=== PATIENT | male | born 1960 | race Caucasian/White ===

== ENCOUNTER 2017-11-05 14:25 | Emergency (ER) | payer MEDICAID ==
--- NOTE | 2017-11-05 16:49 | ED Physician Documentation ---
PD HPI MALE - Stated complaint Stated Complaint: MALE - Chief complaint Chief Complaint: UTI - History obtained from History obtained from: Patient - History of Present Illness Timing - onset: How many weeks ago (1) Timing - duration: Weeks (1) Timing - details: Gradual onset, Still present (had onset of swelling left inguinal area that has increased and swelling to left scrotum as well. No nuasea nor vomiting.) Associated symptoms: Scrotal swelling. No: Dysuria, Urinary frequency, Discharge, Abdominal pain, Back pain PD HPI MALE CONTRIB FACTORS: Sexually active. No: Exposed to STD Similar symptoms before: Has not had sx before (had hernia right sie repaired but that was just lump in groin, not scrotum.) Review of Systems Constitutional: denies: Fever GI: denies: Abdominal Pain, Nausea, Vomiting, Diarrhea : denies: Dysuria, Frequency, Hematuria, Discharge Skin: denies: Rash PD PAST MEDICAL HISTORY - Past Medical History Cardiovascular: Hypertension, High cholesterol Respiratory: None Endocrine/Autoimmune: None GI: Colon polyps, Other : Benign prostate hypertrophy, Retention, Kidney stones HEENT: None Psych: Depression Musculoskeletal: Osteoarthritis Derm: None - Past Surgical History Past Surgical History: Yes General: Colonoscopy Ortho: Rotator cuff repair, Carpal Tunnel surgery HEENT: Tonsil/Adenoidectomy - Present Medications Home Medications: Ambulatory Orders Medication Instructions Recorded Confirmed HYDROcod/ACETAM 5/325 [[place] 5/325] 1 tab PO Q6H PRN #20 tablet 11/05/17 Naproxen [Naprosyn] 500 mg PO BID PRN #20 tablet 11/05/17 - Allergies Allergies/Adverse Reactions: Allergies Allergy/AdvReac Type Severity Reaction Status Date / Time FREEDOM Inhibitors Allergy Edema Verified 11/05/17 14:35 - Social History Does the pt smoke?: Yes Does the pt drink ETOH?: No - Immunizations Immunizations are current?: Yes PD ED PE NORMAL - Vitals Vital signs reviewed: Yes - General General: Alert and oriented X 3, Well developed/nourished - Abdomen Abdomen: Normal bowel sounds, Soft, Non tender, Non distended, No organomegaly - Male Male : Other (left inguinal area with tender mass but soft. Left scrotum with swelling and tenderness with mass feeling continguous with the inguinal site. Consider hernia. Will get U/S to evluate testicle flow. ) - Back Back: No CVA TTP - Derm Derm: Normal color, Warm and dry, No rash Results - Vitals Vitals: Oxygen O2 Source Room air - Labs Labs: Laboratory Tests 11/05/17 16:50 Urine Color YELLOW Urine Clarity CLEAR Urine pH 7.5 Ur Specific [place] 1.020 Urine Protein 30 H Urine Glucose (UA) NEGATIVE Urine Ketones NEGATIVE Urine Occult Blood TRACE-INTA Urine Nitrite NEGATIVE Urine Bilirubin NEGATIVE Urine Urobilinogen 0.2 (NORMAL) Ur Leukocyte Esterase NEGATIVE Urine RBC 6-10 H Urine WBC 0-3 Ur Squamous Epith Cells NONE SEEN Urine Bacteria None Seen Ur Microscopic Review INDICATED Urine Culture Comments NOT INDICATED PD MEDICAL DECISION MAKING - ED course Complexity details: reviewed results (U/S showing normal testicle. There is large hernia in inguinal area to scrotum with some pressure gainst testicle. Normal blood flow. ), considered differential, d/w patient Departure - Departure Disposition: Home, Self Care Clinical Impression: Swelling of inguinal region, Scrotal hernia Condition: Stable Record reviewed to determine appropriate education?: Yes Instructions: ED Hernia Inguinal Follow-Up: PANDA MARSH MD [Provider Admit Priv/Credential] - Prescriptions: HYDROcod/ACETAM 5/325 [[place] 5/325] 1 tab PO Q6H PRN #20 tablet PRN Reason: Pain Naproxen [Naprosyn] 500 mg PO BID PRN #20 tablet PRN Reason: Pain Comments: Some ice or cold packs to the groin area may help with some of the pain and swelling. Contact Dr. Marsh's office (or any other surgeons available at the surgical center), call Wednesday for an appointment. Naproxen or ibuprofen 2- 3 times a day for pain. Add hydrocodone if needed. Drink lots of fluids. Follow-up for surgical consultation for presumed repair of the hernia. Discharge Date/Time: 11/05/17 20:17
[2017-11-05 17:01] LABS: BILIRUBIN,URINE NEGATIVE (NEGATIVE); GLUCOSE, URINE (UA) NEGATIVE (NEGATIVE); KETONES,URINE (UA) NEGATIVE (NEGATIVE); LEUKOCYTE ESTERASE, URINE NEGATIVE (NEGATIVE); NITRITE,URINE NEGATIVE (NEGATIVE); OCCULT BLOOD,URINE TRACE-INTA (NEGATIVE); PH,URINE 7.5 PH (5.0-7.5); PROTEIN,URINE 30 mg/dL (NEGATIVE); UROBILINOGEN,URINE 0.2 (NORMAL) E.U./dL (NORMAL)
[2017-11-05 17:02] LABS: CLARITY,URINE CLEAR (CLEAR)
[2017-11-05] MEDS ORDERED: IBUPROFEN 600 MG TABLET PO STA (17:09)
[2017-11-05] MEDS ORDERED: HYDROcod/ACETAM 5/325 MG TABLET PO STA (17:09)
[2017-11-05 17:16] LABS: BACTERIA,URINE None Seen /HPF (None Seen); SQUAMOUS EPITHELIAL CELL,UR NONE SEEN (<= Few)
[2017-11-05 18:30] VITALS: BP 142/104
--- NOTE | 2017-11-05 20:04 | Ultrasound Report ---
EXAM: SCROTAL ULTRASOUND EXAM DATE: 11/05/2017 07:49 PM. CLINICAL HISTORY: Left scrotal/inguinal pain and swelling for 1-2 wk. COMPARISON: 08/20/2016. TECHNIQUE: Real-time scanning was performed with static images obtained. Both color-flow and Doppler spectral analysis were utilized. FINDINGS: Right: Testis: 3.0 x 2.9 x 2.1 cm. Normal size and echotexture. No mass, calcification, or abnormal blood fl ow. Epididymis: 0.8 x 0.8 x 1.2 cm. Normal size and echotexture. No mass or abnormal blood flow. Hydrocele: Small to moderate hydrocele. Varicocele: Small varicocele measuring 3.1 mm. Left: Testis: 3.5 x 1.9 x 2.5 cm. Normal size and echotexture. No mass, calcification, or abnormal blood fl ow. Epididymis: 0.9 x 1.0 x 1.0 cm. Normal size and echotexture. No mass or abnormal blood flow. Hydrocele: Small hydrocele. Varicocele: None. Other: Solid heterogeneous tissue along the lateral surface of the testicle measuring 2.5 x 2.4 x 3.4 cm, impressing upon the testicle and deforming it a little, contiguous with tissue extending down th rough the inguinal canal, apparently representing hernia; no peristalsis. IMPRESSION: 1. Left inguinal hernia with tissue pressing upon the left testicle. Not bowel. 2. Small to moderate hydroceles, small right varicocele, as previously noted. [facility] Referring Provider Line: [phone] SITE ID: [id number]
== END 2017-11-05 20:17 | disposition home or self-care (01) ==
LOC: ED 14:25
DX: K40.90 Unilateral inguinal hernia, without obstruction or gangrene, not specified as recurrent (principal); N43.3 Hydrocele, unspecified; I86.1 Scrotal varices; I10 Essential (primary) hypertension; E78.00 Pure hypercholesterolemia, unspecified; N40.0 Benign prostatic hyperplasia without lower urinary tract symptoms; Z86.010 Personal history of colon polyps; Z87.442 Personal history of urinary calculi; M19.90 Unspecified osteoarthritis, unspecified site; F17.200 Nicotine dependence, unspecified, uncomplicated
CPT/HCPCS: 76870; 81001; 93975; 99283; A9270; 81003; 87086

== ENCOUNTER 2017-12-08 07:54 | Outpatient (CLI) | payer MEDICAID ==
[2017-12-08 13:08] LABS: BASOPHILS # (AUTO) 0.1 10^3/uL (0.0-0.1); BASOPHILS % (AUTO) 1.4 %; EOSINOPHILS % (AUTO) 0.8 %; HGB - HEMOGLOBIN 15.3 g/dL (14.0-18.0); LYMPHOCYTES # (AUTO) 1.2 10^3/uL (1.5-3.5); LYMPHOCYTES % (AUTO) 20.2 %; MEAN CORPUSCULAR HEMOGLOBIN 28.9 pg (27.0-31.0); MEAN CORPUSCULAR HGB CONC 34.5 g/dL (32.0-36.0); MEAN CORPUSCULAR VOLUME 83.6 fL (80.0-94.0); MEAN PLATELET VOLUME 7.9 fL (7.4-11.4); MONOCYTES # (AUTO) 0.8 10^3/uL (0.0-1.0); MONOCYTES % (AUTO) 13.4 %; NEUTROPHILS # (AUTO) 3.7 10^3/uL (1.5-6.6); NEUTROPHILS % (AUTO) 64.2 %; PLT - PLATELET COUNT 239 10^3/uL (130-450); RED BLOOD COUNT 5.31 10^6/uL (4.70-6.10); RED CELL DISTRIBUTION WIDTH 14.1 % (12.0-15.0); WHITE BLOOD COUNT 5.8 x10^3/uL (4.8-10.8)
[2017-12-08 13:23] LABS: ALBUMIN 3.7 g/dL (3.2-5.5); ALKALINE PHOSPHATASE 73 IU/L (42-121); ALT ALANINE AMINOTRANSFERASE 21 IU/L (10-60); AST ASPARTATE AMINOTRANSFERASE 25 IU/L (10-42); BILIRUBIN,TOTAL 0.5 mg/dL (0.2-1.0); BUN - BLOOD UREA NITROGEN 16 mg/dL (6-20); CALCIUM 8.6 mg/dL (8.5-10.3); CARBON DIOXIDE - CO2 26 mmol/L (21-32); CHLORIDE 98 mmol/L (101-111); CHOL/HDL RATIO 8.4 (<5.0); CHOLESTEROL 337 mg/dL; GFR - MDRD 77 (>89); GLUCOSE 115 mg/dL (70-100); HDL CHOLESTEROL 40 mg/dL; LDL CHOLESTEROL,CALCULATED 279 mg/dL; SODIUM 132 mmol/L (135-145); TOTAL PROTEIN 7.3 g/dL (6.7-8.2); VLDL CHOLESTEROL 18 mg/dL
== END 2017-12-08 07:55 | disposition home or self-care (01) ==
LOC: LAB.N 07:54
PROVIDERS: ATTEND Family Medicine
DX: I10 Essential (primary) hypertension (principal); F17.210 Nicotine dependence, cigarettes, uncomplicated
CPT/HCPCS: 36415; 80050; 80061; 83721

== ENCOUNTER 2017-12-13 06:17 | Day surgery (SDC) | payer MEDICAID ==
[2017-12-13] MEDS ORDERED: ceFAZolin 2 GM/50 ML 2 GM/50 ML BAG IV ONE (06:35)
[2017-12-13] MEDS ORDERED: LACTATED RINGERS 1,000 ML IV ONE ×5 (07:00→13:00)
[2017-12-13] MEDS ORDERED: GLYCOPYRROLATE 1 MG/5 ML VIAL IVP ONE (09:01)
[2017-12-13] MEDS ORDERED: ONDANSETRON 4 MG/2 ML VIAL IVP ONE (09:01)
[2017-12-13] MEDS ORDERED: LIDOCAINE-MPF 2% 5 ML VIAL IM ONE (09:01)
[2017-12-13] MEDS ORDERED: PROPOFOL 200 MG/20 ML VIAL IVP ONE (09:01)
[2017-12-13] MEDS ORDERED: KETOROLAC 30 MG/ML VIAL IVP ONE (09:01)
[2017-12-13] MEDS ORDERED: ROCURONIUM 50 MG/5 ML VIAL IVP ONE (09:01)
[2017-12-13] MEDS ORDERED: fentaNYL 100 MCG/2 ML VIAL IVP ONE (09:01)
[2017-12-13] MEDS ORDERED: ePHEDrine 50 MG/ML AMP IVP ONE (09:01)
[2017-12-13] MEDS ORDERED: ACETAMINOPHEN 1,000 MG/100 ML 100 ML IV ONE (09:01)
[2017-12-13] MEDS ORDERED: BUPIVACAINE 0.5% PF 30 ML VIAL INFIL ONE (09:46)
--- NOTE | 2017-12-13 10:11 | POST OP PROGRESS NOTE ---
Subjective - Other Other Information/Narrative: SURGEON: Dr. Marsh. PREOPERATIVE DIAGNOSIS: Left inguinal hernia. POSTOPERATIVE DIAGNOSIS: Left inguinal hernia. INDICATIONS FOR PROCEDURE: This is a 57-year-old gentleman with a painful left inguinal hernia, who presents for elective repair. He underwent a laparoscopic right inguinal hernia repair last year. FINDINGS: After obtaining informed consent from the patient, he was brought into the operating room and positioned on the operating table in the supine position, taking note of pressure points. He was intubated by Anesthesia. Perioperative antibiotics were administered. SCD boots were applied. A chua was inserted. He was prepped and draped in the usual sterile fashion. A timeout was taken according to protocol. An infraumbilical 1 cm incision was created and deepened down to the anterior rectus sheath. This was exposed using blunt dissection. The anterior sheath was then opened with a 15 blade and extended with Metzenbaums, exposing the underlying rectus muscle. The rectus muscle was swept laterally with the retractor and the surgeon's finger inserted into the retrorectus space to perform blunt dissection. The dissecting balloon was then inserted and inflated under direct visualization. The balloon was then removed and was exchanged for the operative balloon. Two 5 mm ports were placed in the infraumbilical midline. The patient was positioned in Trendelenburg with the left side elevated. The fatty tissue overlying the pubic bone was dissected to expose the pubic bone. There was some scaring in this area from his previous laparoscopic inguina hernia require careful dissection. I then turned my attention to the patient's left abdominal wall and pushed the peritoneum down, exposing the left lateral abdominal musculature. I worked my way medially towards the cord structures continuing to push the peritoneum down. Again some scar tissue was present and locating the hernia sac was somewhat difficult. Additionally he had a lipoma of his cord which required reduction. His cord structures were noted to be thickened likely from his hydrocele. A small hernia sac, which was partially reduced, was noted in the indirect space. It was noted to be quite stuck to the cord structures and required careful dissection to fully reduce the hernia sac. I was able to do this fully. The cord structures were skeletonized and the hernia completely dissected off of the cord structures. The epigastric vessels were visualized and protected. The direct space was then visualized and there was some fat within the space, but no hernia was noted. There was some bleeding from the fatty cord structures during the dissection and a small gauze was inserted into the space to facilitate visualization. The bleeding was controlled with electrocautery. The gauze was then removed. A large Bard regular weight mesh was selected for the patient's left groin. This was inserted through the umbilical port and positioned appropriately. The medial aspect of the mesh was noted to be slightly crossing the midline and the mesh was seated against the abdominal wall as to cover the indirect, direct and femoral spaces. It was tacked with a tack placed in the midline above the pubic symphasis and on the lateral abdominal wall using the surgeon's hand for counter pressure ensuring it was placed above the nerve structures. The cavity was then inspected to ensure hemostasis had been achieved and it had. The mesh was then held into place as the retrorectal air was allowed to desufflate. The umbilical fascial incision was then closed with a running 0 Vicryl suture. 30 mL of local anesthetic was infiltrated. The skin incisions were closed with 4-0 Monocryl. Dermabond was then applied. The patient was subsequently extubated and taken to the recovery room in stable condition. ESTIMATED BLOOD LOSS: 15 mL COMPLICATIONS: None.
[2017-12-13] MEDS ORDERED: oxyCOD/ACETAMIN 5 MG/325 MG TABLET PO ONE (11:48)
[2017-12-13 13:45] VITALS: BP 146/85
== END 2017-12-13 06:18 | disposition home or self-care (01) ==
LOC: SDS 06:17
PROVIDERS: ATTEND Surgery
PROC: 0YU64JZ Supplement Left Inguinal Region with Synthetic Substitute, Percutaneous Endoscopic Approach (ICD-10-PCS; principal; 2017-12-13 07:30)
DX: K40.90 Unilateral inguinal hernia, without obstruction or gangrene, not specified as recurrent (principal); D17.6 Benign lipomatous neoplasm of spermatic cord; F17.210 Nicotine dependence, cigarettes, uncomplicated; I10 Essential (primary) hypertension
CPT/HCPCS: 49650; A9270; C1781; J0131; J0690; J7120

== ENCOUNTER 2018-01-25 07:37 | Outpatient (CLI) | payer MEDICAID ==
[2018-01-25] MEDS ORDERED: IOPAMIDOL-300 100 ML VIAL ONE (07:49)
[2018-01-25] MEDS ORDERED: IOPAMIDOL-300 50 ML VIAL ONE (07:49)
[2018-01-25] MEDS ORDERED: IOPAMIDOL-300 50 ML VIAL PO ONE (08:54)
[2018-01-25] MEDS ORDERED: IOPAMIDOL-300 100 ML VIAL IVP ONE (08:54)
--- NOTE | 2018-01-25 13:11 | CT Report ---
CT PELVIS WITH CONTRAST: 01/25/2018 CLINICAL INDICATION: Left-sided swelling following left inguinal herniorrhaphy. TECHNIQUE: Axial CT images of the pelvis were obtained with 100 mL Isovue 300 intravenously as well as oral contrast. COMPARISON: No previous CT is available for comparison. FINDINGS: The visualized kidneys demonstrate cortical cysts. Atherosclerotic disease is present. Sigmoid diverticulosis is seen, without CT evidence of diverticulitis. Postoperative changes are seen in the left groin. There is fat adjacent to the left spermatic vessels, compatible with lipomatous hypertrophy of the inguinal canal, without evidence of a recurrent left inguinal hernia. No adenopathy is seen. Osseous structures demonstrate degenerative changes. IMPRESSION: NO EVIDENCE OF RECURRENT HERNIA OR ABNORMAL FLUID COLLECTION. CT DOSE REDUCTION STATEMENT In accordance with CT protocol optimization, one or more of the following dose reduction techniques were utilized for this exam: automated exposure control, adjustment of mA and/or KV based on patient size, or use of iterative reconstructive technique. TD: 01/25/2018 13:10
== END 2018-01-25 07:38 | disposition home or self-care (01) ==
LOC: DI 07:37
PROVIDERS: ATTEND Surgery
DX: R10.32 Left lower quadrant pain (principal)
CPT/HCPCS: 72193; Q9967

== ENCOUNTER 2018-01-25 08:00 | Outpatient (CLI) | payer MEDICAID ==
[~2018-01-25 08:00] MED LIST: IOPAMIDOL-300 100 ML VIAL ONE
[2018-01-25 08:10] LABS: CREATININE 0.7 mg/dL (0.6-1.2)
[2018-01-25] MEDS ORDERED: IOPAMIDOL-300 100 ML VIAL IVP ONE (08:45)
[2018-02-08] MEDS ORDERED: IOPAMIDOL-300 100 ML VIAL IVP ONE (09:45)
== END 2018-01-25 23:59 | disposition home or self-care (01) ==
LOC: LAB 08:00
PROVIDERS: ATTEND Surgery
DX: R10.32 Left lower quadrant pain (principal)
CPT/HCPCS: 36415; 82565

== ENCOUNTER 2018-02-08 13:32 | Emergency (ER) | payer MEDICAID ==
[2018-02-08 13:39] VITALS: BP 184/146
--- NOTE | 2018-02-08 14:15 | ED Physician Documentation ---
PD HPI MALE - Stated complaint Stated Complaint: MALE - Chief complaint Chief Complaint: General - History obtained from History obtained from: Patient - History of Present Illness Timing - onset: How many weeks ago (he has had swelling and tenderness left inguinala stacey) Timing - duration: Weeks Timing - details: Gradual onset, Still present (increased size and pain of the inguinal mass the past week even more than had been.) Associated symptoms: No: Dysuria, Urinary frequency, Testiclar pain (but is hurting in left inguinal area, increasingly so the past few weeks after hernia repair surgery.) Recently seen: Clinic (seen in office couple weeks ago and had CT pelvis done showing fatty hypertrophy around spermatic cord left side. No hernia, no abscess , no fluid collection.) Review of Systems Constitutional: denies: Fever, Chills GI: denies: Vomiting, Diarrhea : reports: Other (left inguinal area pain and swelling). denies: Dysuria, Frequency, Hematuria Skin: denies: Rash, Lesions PD PAST MEDICAL HISTORY - Past Medical History Cardiovascular: Hypertension, High cholesterol Respiratory: None Endocrine/Autoimmune: None GI: Colon polyps, Other : Benign prostate hypertrophy, Retention, Kidney stones HEENT: None Psych: Depression Musculoskeletal: Osteoarthritis Derm: None - Past Surgical History Past Surgical History: Yes General: Colonoscopy Ortho: Rotator cuff repair, Carpal Tunnel surgery HEENT: Tonsil/Adenoidectomy - Present Medications Home Medications: Ambulatory Orders Medication Instructions Recorded Confirmed Naproxen [Naprosyn] 500 mg PO BID #20 tablet 02/08/18 Oxycodone HCl/Acetaminophen 1 each PO Q6H PRN #20 tablet 02/08/18 [Percocet 5-325 mg Tablet] - Allergies Allergies/Adverse Reactions: Allergies Allergy/AdvReac Type Severity Reaction Status Date / Time FREEDOM Inhibitors Allergy Edema Verified 12/09/17 15:39 - Social History Does the pt smoke?: Yes Smoking Status: Current every day smoker Does the pt drink ETOH?: No Does the pt have substance abuse?: No - Immunizations Immunizations are current?: Yes - POLST Patient has POLST: No PD ED PE NORMAL - Vitals Vital signs reviewed: Yes - General General: Alert and oriented X 3, Well developed/nourished, Other (appears in pain due to inguinal swelling. ) - Neck Neck: Supple, no meningeal sign, No adenopathy - Cardiac Cardiac: RRR, No murmur - Respiratory Respiratory: Clear bilaterally - Abdomen Abdomen: Normal bowel sounds, Soft, Non tender, Non distended, No organomegaly - Male Male : Other (left inguinal and upper scrotal area with demarcated swelling and tenderness in tubular shape. No redness nor rash. Below that testicle does seem to feel normal, but harder to assess. ) Results - Vitals Vitals: Vital Signs - 24 hr 02/08/18 13:35 Temperature 36.4 C L Heart Rate 87 Respiratory 20 Rate Blood Pressure 184/146 H O2 Saturation 100 Oxygen O2 Source Room air - Rads (name of study) scrotal U/S Radiology: Prelim report reviewed (no fluid collection at area of swelling, appears tissue density. Small hydrocele lower noted. Testicles are normal. ) PD MEDICAL DECISION MAKING - ED course Complexity details: considered differential (recent CT scan showing fatty hypertrophy around spermatic cord. U/S today showed similar density of tissue. No fluid collection. Testicle normal. ), d/w patient, d/w principal consultant (Dr. Candelaria , [facility], to treat with NSAIDs and time. Usually not able to do surgical treatment. Can refer for office appt. ) Departure - Departure Disposition: 01 Home, Self Care Clinical Impression: Swelling of inguinal region Condition: Stable Record reviewed to determine appropriate education?: Yes Follow-Up: Marilin Candelaria MD [Physician No Access] - Prescriptions: Naproxen [Naprosyn] 500 mg PO BID #20 tablet Oxycodone HCl/Acetaminophen [Percocet 5-325 mg Tablet] 1 each PO Q6H PRN #20 tablet PRN Reason: Pain Comments: The area of swelling and lump appears to be some inflammation and overgrowth of fatty tissue around the spermatic cord. I talked with the urologist in [place] who said to try anti-inflammatories and use pain medicine as needed. He can follow-up with them also call tomorrow for an appointment with the urology office. Use naproxen twice daily for 7-10 days. Add Percocet if needed for pain. It does not appear to be infectious so antibiotics are not going to be helpful. Follow-up with your primary care and also urology. Discharge Date/Time: 02/08/18 18:35
[2018-02-08] MEDS ORDERED: KETOROLAC 60 MG/2 ML VIAL IVP STA (14:29)
[2018-02-08] MEDS ORDERED: HYDROmorphone 1 MG/ML CARPUJECT IVP STA (14:29)
--- NOTE | 2018-02-08 17:58 | Ultrasound Report ---
SCROTAL ULTRASOUND: 02/08/2018 HISTORY: Status post inguinal hernia repair, now with severe left groin pain. COMPARISON: Testicular ultrasound 05/26/2016, 08/20/2016 and 11/05/[address] 01/25/18 TECHNIQUE: Real-time scanning by the refining engineer with me present and saved static images reviewed. FINDINGS Right hemiscrotum: Testicle 3.5 x 2.3 x 2.9 cm. Normal echotexture and blood flow. Small hydrocele. Small varicocele. Epididymis 1.4 x 1.5 x 2.3 cm with a heterogenous appearance. No significant increased vascularity. Left hemiscrotum: Testicle 3.3 x 2.6 x 2.6 cm. Normal echotexture and blood flow. Small left hydrocele. Unremarkable appearing left epididymis. Lateral to the left testicle, there is a heterogeneous area with increased vascularity contiguous with the spermatic cord , considerer fat/lipoma, vasitis or funiculitis. There is diffuse scrotal thickening consistent with inflammation. No hernia is seen. IMPRESSION 1. NORMAL TESTICLES BILATERALLY. SMALL BILATERAL HYDROCELES. RIGHT VARICOCELE. 2. SLIGHT ASYMMETRIC INCREASED SOFT TISSUE LATERAL TO THE LEFT TESTICLE CONTINGUOUS WITH THE SPERMATIC CORD. CONSIDER FAT/LIPOMA, VASITIS, FUNICULITIS. 3. DIFFUSE SCROTAL SKIN THICKENING CONSISTENT WITH INFLAMMATION. 4. NO EVIDENCE OF RECURRENT INGUINAL HERNIA. TD: 02/08/2018 17:58 MTDD
== END 2018-02-08 18:35 | disposition home or self-care (01) ==
LOC: ED 13:32
DX: R19.09 Other intra-abdominal and pelvic swelling, mass and lump (principal); N43.3 Hydrocele, unspecified; I86.1 Scrotal varices; I10 Essential (primary) hypertension; E78.00 Pure hypercholesterolemia, unspecified; F17.200 Nicotine dependence, unspecified, uncomplicated; Z98.890 Other specified postprocedural states
CPT/HCPCS: 76870; 93975; 96374; 96375; 99283; 99284; J1170; 87491; 87591

== ENCOUNTER 2019-02-01 08:43 | Outpatient (CLI) | payer OTHER ==
[2019-02-01 09:04] LABS: BASOPHILS % (AUTO) 0.6 %; EOSINOPHILS # (AUTO) 0.2 10^3/uL (0.0-0.7); EOSINOPHILS % (AUTO) 2.8 %; HGB - HEMOGLOBIN 16.1 g/dL (14.0-18.0); LYMPHOCYTES # (AUTO) 1.6 10^3/uL (1.5-3.5); LYMPHOCYTES % (AUTO) 20.3 %; MEAN CORPUSCULAR HEMOGLOBIN 28.3 pg (27.0-31.0); MEAN CORPUSCULAR HGB CONC 32.9 g/dL (32.0-36.0); MEAN CORPUSCULAR VOLUME 86.1 fL (80.0-94.0); MEAN PLATELET VOLUME 7.3 fL (7.4-11.4); MONOCYTES # (AUTO) 0.6 10^3/uL (0.0-1.0); MONOCYTES % (AUTO) 7.8 %; NEUTROPHILS # (AUTO) 5.4 10^3/uL (1.5-6.6); NEUTROPHILS % (AUTO) 68.5 %; PLT - PLATELET COUNT 329 10^3/uL (130-450); RED CELL DISTRIBUTION WIDTH 14.7 % (12.0-15.0); WHITE BLOOD COUNT 7.9 x10^3/uL (4.8-10.8)
[2019-02-01 09:09] LABS: CLARITY,URINE CLEAR (CLEAR)
[2019-02-01 09:09] LABS: ALBUMIN 3.4 g/dL (3.2-5.5); ALBUMIN/GLOBULIN RATIO 0.9 (1.0-2.2); BILIRUBIN,TOTAL 1.1 mg/dL (0.2-1.0); CALCIUM 8.8 mg/dL (8.5-10.3); TOTAL PROTEIN 7.1 g/dL (6.7-8.2)
[2019-02-01 09:11] LABS: BILIRUBIN,URINE NEGATIVE (NEGATIVE); GLUCOSE, URINE (UA) NEGATIVE (NEGATIVE); KETONES,URINE (UA) NEGATIVE (NEGATIVE); LEUKOCYTE ESTERASE, URINE NEGATIVE (NEGATIVE); NITRITE,URINE NEGATIVE (NEGATIVE); OCCULT BLOOD,URINE SMALL (NEGATIVE); PROTEIN,URINE NEGATIVE (NEGATIVE); UROBILINOGEN,URINE 0.2 (NORMAL) E.U./dL (NORMAL)
[2019-02-01 09:35] LABS: BACTERIA,URINE Rare /HPF (None Seen); RBC,URINE 0-5 /HPF (0-5); SQUAMOUS EPITHELIAL CELL,UR RARE Squamous (<= Few)
== END 2019-02-01 08:44 | disposition home or self-care (01) ==
LOC: RT 08:43
PROVIDERS: ATTEND Internal Medicine Gastroenterology
DX: Z86.010 Personal history of colon polyps (principal); I10 Essential (primary) hypertension; N40.1 Benign prostatic hyperplasia with lower urinary tract symptoms
CPT/HCPCS: 36415; 80053; 81001; 85025; 87086; 93005

== ENCOUNTER 2019-02-06 07:10 | Day surgery (SDC) | payer OTHER ==
[2019-02-06] MEDS ORDERED: BUPIVACAINE 0.5%-EPI 1:200000 PF 30 ML VIAL ONE (07:16)
[2019-02-06] MEDS ORDERED: LIDOCAINE 1% 50 ML MDV ONE (07:16)
[2019-02-06] MEDS ORDERED: ceFAZolin 1 GM VIAL ONE (07:16)
[2019-02-06] MEDS ORDERED: LACTATED RINGERS 1,000 ML IV ONE (07:27)
[2019-02-06] MEDS ORDERED: ceFAZolin 2 GM/50 ML 2 GM/50 ML BAG IV ONE (07:43)
[2019-02-06 07:45] VITALS: BP 164/108
--- NOTE | 2019-02-06 07:48 | ANESTHESIA ---
Pre-Anesthesia VS, & Labs - Diagnosis Left recurrent inguinal hernia - Procedure Left inguinal hernia repair Height 5 ft 10 in Body Mass Index 22.2 - NPO >8 hours - Lab Results Lab results reviewed: Yes Home Medications and Allergies Home Medications: Ambulatory Orders RX: Methocarbamol 500 mg PO Q6H PRN 02/03/19 RX: Metoprolol Tartrate 50 mg PO BID 02/03/19 Methocarbamol 500 mg PO Q6H PRN 02/03/19 Metoprolol Tartrate 50 mg PO BID 02/03/19 Allergies/Adverse Reactions: Allergies Allergy/AdvReac Type Severity Reaction Status Date / Time FREEDOM Inhibitors Allergy Edema Verified 12/09/17 15:39 Anes History & Medical History - Anesthetic History Anesthesia Complications: reports: No previous complications Family history of Anesthesia Complications: Denies Family history of Malignant Hyperthermia: Denies - Medical History Cardiovascular: reports: Hypertension, High cholesterol Pulmonary: reports: None, Other (Morning cough related to smoking) Gastrointestinal: reports: Colon polyps Urinary: reports: Benign prostate hypertrophy, Retention, Kidney stones Neuro: reports: None Musculoskeletal: reports: Osteoarthritis Endocrine/Autoimmune: reports: Other Blood Disorders: reports: None Skin: reports: None, Other (Right top of hand with injury from janee nail, will inform surgeon) Smoking Status: Current every day smoker Psychosocial: reports: No issues indicated - Surgical History General: Colonoscopy, Other Eyes Ears Nose Throat (EENT): Tonsil/Adenoidectomy Orthopedic: Rotator cuff repair, Carpal Tunnel surgery Exam General: Alert Dental: WNL Mouth Opening: Greater than 4 Fingerbreadths Neck Mobility: Reduced Mallampati classification: II Thyromental Distance: greater than 6 cm Respiratory: Lungs clear Cardiovascular: Regular rate Neurological: Normal speech Mental/Cognitive Status: Alert/Oriented X3 Cognitive Status: Within normal limits Plan Anesthesia Type: General Consent for Procedure(s) Verified and Reviewed: Yes Code Status: Attempt Resuscitation ASA classification: 2-Mild systemic disease Is this case an emergency?: No
[2019-02-06] MEDS ORDERED: TETANUS/DIPHTHERIA/PERTUSSIS 0.5 ML SYRINGE IM ONE (09:00)
== END 2019-02-06 07:11 | disposition home or self-care (01) ==
LOC: SDS 07:10
PROVIDERS: ATTEND Internal Medicine Gastroenterology
DX: K40.91 Unilateral inguinal hernia, without obstruction or gangrene, recurrent (principal); Z53.09 Procedure and treatment not carried out because of other contraindication; S61.411D Laceration without foreign body of right hand, subsequent encounter; W45.0XXD Nail entering through skin, subsequent encounter
CPT/HCPCS: 90715; J0690; J7120

== ENCOUNTER 2019-02-08 13:54 | Outpatient (CLI) | payer OTHER | END 2019-02-08 23:59 | disposition home or self-care (01) | LOC: LAB.R 13:54 | PROVIDERS: ATTEND Surgery | DX: L08.9 Local infection of the skin and subcutaneous tissue, unspecified (principal) | CPT/HCPCS: 87070; 87181; 87205 ==

== ENCOUNTER 2019-02-11 15:01 | Outpatient (CLI) | payer OTHER ==
--- NOTE | 2019-02-13 08:26 | Ultrasound Report ---
Reason: TESTICULAR PAIN,RIGHT Procedure Date: 02/11/2019 Accession Number: [id number] / [id number] Procedure: US - Testicle w/Doppler CPT Code: FULL RESULT: EXAM: SCROTAL ULTRASOUND EXAM DATE: 02/11/2019 04:29 PM. CLINICAL HISTORY: Right testicular pain. COMPARISON: TESTICLE W/DOPPLER 02/08/2018 3:22 PM. TECHNIQUE: Real-time scanning was performed with static images obtained. Color-flow images were utilized. FINDINGS: Right: Testis: 4.0 x 2.0 x 2.9 cm, volume 12.1 cc. Normal echotexture. No mass or calcification. No hyperemia. Epididymis: The epididymal head measures 1.4 x 1.4 cm and contains a 0.4 cm simple cyst. Normal echotexture. No hyperemia. Hydrocele: Small, anechoic. Varicocele: Yes. Left: Testis: 3.1 x 2.3 x 2.7 cm, volume 10.1 cc. Normal echotexture. No mass or calcification. No hyperemia. Epididymis: The epididymal head measures 1.2 x 0.9 cm and contains a simple cyst measuring 0.5 cm. Normal echotexture. No hyperemia. Hydrocele: Small, anechoic. Varicocele: None. Other: Redemonstration of known left inguinal hernia with hernia contents extending into the scrotal sac. IMPRESSION: 1. Redemonstration of known left inguinal hernia which extends into the scrotal sac. 2. Right varicocele, as before. 3. Subcentimeter simple bilateral epididymal head cysts. 4. Small simple bilateral hydroceles. [facility]
== END 2019-02-11 15:02 | disposition home or self-care (01) ==
LOC: DI 15:01
PROVIDERS: ATTEND Internal Medicine Gastroenterology
DX: K40.90 Unilateral inguinal hernia, without obstruction or gangrene, not specified as recurrent (principal); I86.1 Scrotal varices; N50.3 Cyst of epididymis; N43.3 Hydrocele, unspecified
CPT/HCPCS: 76870; 93975

== ENCOUNTER 2019-02-20 07:32 | Day surgery (SDC) | payer OTHER ==
[~2019-02-20 07:32] MED LIST changes: +BUPIVACAINE 0.5%-EPI 1:200000 PF 30 ML VIAL ONE; -IOPAMIDOL-300 100 ML VIAL ONE; +LIDOCAINE 1% 50 ML MDV ONE; +ceFAZolin 1 GM VIAL ONE; +ceFAZolin 2 GM/50 ML 2 GM/50 ML BAG IV ONE
--- NOTE | 2019-02-20 07:47 | ANESTHESIA ---
Pre-Anesthesia VS, & Labs - Diagnosis recurrent left inguinal hernia - Procedure open left inguinal hernia repair Vital Signs: Temp Pulse Resp BP Pulse Ox 36.4 C L 57 L 16 157/97 H 100 02/20/19 07:38 02/20/19 07:38 02/20/19 07:38 02/20/19 07:38 02/20/19 07:38 Height 5 ft 10 in Weight (kg) 72.4 kg Body Mass Index 22.2 - NPO >8 hours Home Medications and Allergies Methocarbamol 500 mg PO Q6H PRN 02/03/19 Metoprolol Tartrate 50 mg PO BID 02/03/19 Allergies/Adverse Reactions: Allergies Allergy/AdvReac Type Severity Reaction Status Date / Time FREEDOM Inhibitors Allergy Edema Verified 12/09/17 15:39 Anes History & Medical History - Anesthetic History Anesthesia Complications: reports: No previous complications Family history of Anesthesia Complications: Denies Family history of Malignant Hyperthermia: Denies - Medical History Cardiovascular: reports: Hypertension, High cholesterol Pulmonary: reports: None, Other Gastrointestinal: reports: Colon polyps, Other Urinary: reports: Benign prostate hypertrophy, Retention, Kidney stones Neuro: reports: None Musculoskeletal: reports: Osteoarthritis Endocrine/Autoimmune: reports: None Blood Disorders: reports: None Skin: reports: None, Other Smoking Status: Current every day smoker - Surgical History General: Colonoscopy Eyes Ears Nose Throat (EENT): Tonsil/Adenoidectomy Orthopedic: Rotator cuff repair, Carpal Tunnel surgery Exam General: Alert Dental: Other (caps) Mouth Openin Fingerbreadth Neck Mobility: Normal Mallampati classification: II Thyromental Distance: greater than 6 cm Respiratory: Rhonchi Cardiovascular: Regular rate, Normal S1, Normal S2, No murmurs Plan Anesthesia Type: General Consent for Procedure(s) Verified and Reviewed: Yes Code Status: Attempt Resuscitation ASA classification: 2-Mild systemic disease Is this case an emergency?: No
[2019-02-20] MEDS ORDERED: LACTATED RINGERS 1,000 ML IV ONE ×3 (07:49→12:05)
[2019-02-20] MEDS ORDERED: BUPIVACAINE 0.5%-EPI 1:200000 PF 30 ML VIAL SUBQ ONE (08:54)
[2019-02-20] MEDS ORDERED: LIDOCAINE 1% 50 ML MDV SUBQ ONE (08:54)
[2019-02-20] MEDS ORDERED: ceFAZolin 1 GM VIAL IR ONE (08:55)
[2019-02-20] MEDS ORDERED: fentaNYL 100 MCG/2 ML VIAL IVP ONE (09:00)
[2019-02-20] MEDS ORDERED: PROPOFOL 200 MG/20 ML VIAL IVP ONE (09:00)
[2019-02-20] MEDS ORDERED: DEXAMETHASONE 4 MG/ML VIAL IVP ONE (09:00)
[2019-02-20] MEDS ORDERED: ONDANSETRON 4 MG/2 ML VIAL IVP ONE (09:00)
[2019-02-20] MEDS ORDERED: GLYCOPYRROLATE 1 MG/5 ML VIAL IVP ONE (09:00)
[2019-02-20] MEDS ORDERED: VASOPRESSIN 20 UNIT/ML VIAL IVP ONE (09:00)
[2019-02-20] MEDS ORDERED: EPINEPHrine 1 MG/ML AMP IVP ONE (09:00)
[2019-02-20] MEDS ORDERED: KETOROLAC 30 MG/ML VIAL IVP ONE (09:00)
[2019-02-20] MEDS ORDERED: MIDAZOLAM 2 MG/2 ML VIAL IVP ONE (09:00)
[2019-02-20] MEDS ORDERED: ONDANSETRON 4 MG/2 ML VIAL IVP PRN (10:40)
[2019-02-20] MEDS ORDERED: IBUPROFEN 600 MG TABLET PO PRN (10:40)
[2019-02-20] MEDS ORDERED: ACETAMINOPHEN 325 MG TABLET PO PRN (10:40)
[2019-02-20] MEDS ORDERED: oxyCODONE 5 MG TABLET PO PRN (10:40)
--- NOTE | 2019-02-20 11:20 | OPERATIVE REPORT ---
DATE OF SERVICE: 02/20/2019 Physician: Xavier Addison MD PREOPERATIVE DIAGNOSIS: Symptomatic recurrent left inguinal hernia. POSTOPERATIVE DIAGNOSES 1. Symptomatic recurrent left inguinal hernia. 2. Left cord lipoma. PROCEDURES 1. Open repair of recurrent left inguinal hernia with polypropylene mesh. 2. Excision of left cord lipoma. ANESTHESIA: General endotracheal plus local by Giovanna Orozco CRNA. SURGEON: Xavier Addison MD. ESTIMATED BLOOD LOSS: 10 mL. COMPLICATIONS: None. FINDINGS: The spermatic cord was markedly enlarged. And seen to comprise primarily a large cord lipo ma measuring approximately 6 cm in greatest dimension associated with a small indirect inguinal herni a comprised of preperitoneal fat. There was no evidence of direct defect, although the internal ring was moderately dilated. INDICATIONS: The patient is a 58-year-old gentleman with a history of a prior laparoscopic repair of a left inguinal hernia who noted a recurrent bulge in his left groin that has become painful and enl arging over the past 6 months. Examination revealed a reducible recurrent left inguinal hernia, and he was advised to undergo repair via an open technique. TECHNIQUE: After informed consent, the patient was taken to the operating room where he was placed u nder general endotracheal anesthesia. Preoperative preparation included application of sequential ca lf compression boots, administration of 2 grams of Kefzol were given intravenously within an hour of the incision. His left groin had been clipped in the ASU, was prepared with iodoform solution, follo wing which a left groin block was instituted using a 50:50 combination of 1% lidocaine plain and 0.5% Marcaine with epinephrine. 30 mL of the mixture was used. The left groin was then re-prepared with ChloraPrep solution, draped in the usual sterile fashion. A transverse incision was made in the skin lines of the left groin beginning, just above the pubic tu bercle, and extending laterally, approximately 5 cm in length. Hemostasis was achieved with electroc autery, 2-0 Vicryl ties. Incision was carried down through subcutaneous tissues until the external o blique aponeurosis was identified and was incised along the lines of its fiber in such a manner as to open the external ring and expose the internal ring. The spermatic cord was markedly scarred and ad herent to the inguinal canal. This was carefully dissected and mobilized eventually, and encircled w ith a Parkman drain. The ilioinguinal nerve was identified and divided to avoid entrapment and neura lgia. The cord was carefully dissected with difficulty because of scarring. Eventually isolated a l arge cord lipoma, which was dissected free from surrounding cord structures to the level of the inter nal ring, where it was ligated and divided with 2-0 Vicryl ties and discarded. A small indirect gold ia was identified, comprised of preperitoneal fat. This was reduced into the peritoneal cavity, and held in place with 2-0 Vicryl ties. After hemostasis had been assured, the wound was irrigated with antibiotic solution containing a gram of cefazolin per liter and a [employer] expanded polypropylene mesh, which had been soaked in the anti biotic solution was brought on the field. This was a precut slotted inguinal patch, and was placed o debby the inguinal floor and secured in place circumferentially with continuous 3-0 Prolene sutures, se curing the patch to the shelving edge of Poupart's ligament inferiorly, to the internal oblique apone urosis superolaterally, and to the lateral border of the rectus sheath medially. The patch was tight ened around the cord at the level of the internal ring to reconstruct a normal sized internal ring. Care was taken to avoid excessive tightening of the patch around the cord at this point. After hemostasis was assured, the wound was irrigated with antibiotic solution, following which wound closure was accomplished in layers using continuous 2-0 Vicryl to reapproximate the external oblique aponeurosis overlying the cord, followed by 3-0 Vicryl for Wyatt's fascia, followed by 4-0 Monocryl subcuticular skin closure, followed by Dermabond. Anesthesia was terminated and patient was transfe rred to the recovery room in satisfactory conditions. Counts were correct x2. No drains were used. TD: 02/20/2019 11:00
[2019-02-20 12:51] VITALS: BP 133/91
== END 2019-02-20 07:33 | disposition home or self-care (01) ==
LOC: SDS 07:32
PROVIDERS: ATTEND Internal Medicine Gastroenterology
PROC: 0VBG0ZZ Excision of Left Spermatic Cord, Open Approach (ICD-10-PCS; 2019-02-20)
PROC: 0YU60JZ Supplement Left Inguinal Region with Synthetic Substitute, Open Approach (ICD-10-PCS; principal; 2019-02-20 09:00)
DX: K40.91 Unilateral inguinal hernia, without obstruction or gangrene, recurrent (principal); I10 Essential (primary) hypertension; F17.210 Nicotine dependence, cigarettes, uncomplicated; E78.00 Pure hypercholesterolemia, unspecified; N40.1 Benign prostatic hyperplasia with lower urinary tract symptoms; R33.8 Other retention of urine; R35.1 Nocturia; Z87.442 Personal history of urinary calculi; Z86.010 Personal history of colon polyps
CPT/HCPCS: 49520; J0690; J7120

== ENCOUNTER 2019-06-15 12:46 | Outpatient (CLI) | payer OTHER ==
--- NOTE | 2019-06-17 11:07 | Ultrasound Report ---
Reason: ARTERIAL INSUFFICIENCY Procedure Date: 06/15/2019 Accession Number: [id number] / [id number] Procedure: US - Ankle Brachial Index CPT Code: FULL RESULT: EXAM: BILATERAL ANKLE/BRACHIAL INDEX EXAM DATE: 06/15/2019 02:26 PM. CLINICAL HISTORY: Arterial insufficiency. COMPARISON: None. TECHNIQUE: A blood pressure cuff and pulse volume recording Doppler ultrasound was used to evaluate the arterial pressures in the arms and ankle. No images were acquired. FINDINGS: Brachial pressure: Right brachial artery: 160 mmHg, index 1.00 Left brachial artery: 162 mmHg, index 1.00 Right ankle pressures: 181 mmHg, index 1.1 Left ankle pressures: 179 mmHg, index 1.0 IMPRESSION: 1. Right ankle/brachial index: 1.1. 2. Left ankle/brachial index: 1.0. ANKLE/BRACHIAL INDEX REFERENCE STANDARDS 1.0-1.4: Normal 0.90-0.99: Borderline < 0.9: Abnormal RADIA
== END 2019-06-15 12:47 | disposition home or self-care (01) ==
LOC: DI 12:46
PROVIDERS: ATTEND Family Medicine
DX: I77.1 Stricture of artery (principal)
CPT/HCPCS: 93922

== ENCOUNTER 2019-06-21 14:59 | Outpatient (CLI) | payer OTHER ==
--- NOTE | 2019-06-23 06:43 | Ultrasound Report ---
Reason: PAIN IN SCROTUM Procedure Date: 06/21/2019 Accession Number: [id number] / [id number] Procedure: US - Testicle CPT Code: FULL RESULT: EXAM: SCROTAL ULTRASOUND EXAM DATE: 06/21/2019 03:17 PM. CLINICAL HISTORY: PAIN IN SCROTUM. COMPARISON: TESTICLE W/DOPPLER 02/11/2019 3:52 PM. TECHNIQUE: Real-time scanning was performed with static images obtained. Color-flow images were utilized. FINDINGS: Right: Testis: 3.6 x 2.7 x 2.6 cm. Normal size and echotexture. No mass, calcification, or abnormal blood flow. Epididymis: 1.3 x 1.8 x 2.8 cm. Anechoic cyst with imperceptible wall and the epididymal head measures 5 x 3 x 4 mm, consistent with epididymal cyst or spermatocele. No solid mass. Normal color signal/vascularity. Hydrocele: Mild, containing fine internal echoes. Varicocele: None. Other: Scrotal skin thickening. Left: Testis: 3.8 x 2.6 x 2.7 cm. Normal size and echotexture. No mass, calcification, or abnormal blood flow. Epididymis: 1.7 x 1.1 x 1.1 cm. Anechoic cyst with imperceptible wall and the epididymal head measures 5 x 3 x 4 mm, consistent with epididymal cyst or spermatocele. No solid mass. Normal color signal/vascularity. Hydrocele: Mild Varicocele: None. Other: Scrotal skin thickening. IMPRESSION: 1. No testicular mass or testicular torsion. 2. Mild bilateral hydroceles with some fine internal echoes in the right hydrocele. 3. Small bilateral epididymal cysts or spermatoceles. 4. Scrotal skin thickening RADIA
== END 2019-06-21 15:00 | disposition home or self-care (01) ==
LOC: DI 14:59
PROVIDERS: ATTEND Urology
DX: N50.9 Disorder of male genital organs, unspecified (principal); N43.3 Hydrocele, unspecified
CPT/HCPCS: 76870

== ENCOUNTER 2019-09-22 11:30 | Outpatient (CLI) | payer MEDICAID, OTHER ==
[2019-09-22 18:36] LABS: MUDS CUTOFF CONCENTRATIONS CUTOFF CONC BELOW:
[2019-09-22 19:12] LABS: AMPHETAMINE SCREEN,URINE POSITIVE (NEGATIVE); BENZODIAZEPINES SCREEN, URINE POSITIVE (NEGATIVE); COCAINE SCREEN URINE NEGATIVE (NEGATIVE); METHADONE SCREEN, URINE NEGATIVE (NEGATIVE); METHAMPHETAMINES SCREEN, URINE POSITIVE (NEGATIVE); OPIATE SCREEN, URINE NEGATIVE (NEGATIVE); OXYCODONE SCREEN, URINE NEGATIVE (NEGATIVE); PROPOXYPHENE SCREEN, URINE NEGATIVE (NEGATIVE); TRICYCLIC ANTIDEPRESSANT,URINE NEGATIVE (NEGATIVE)
== END 2019-09-22 23:59 | disposition home or self-care (01) ==
LOC: LAB.R 11:30
PROVIDERS: ATTEND Family Medicine
DX: N50.819 Testicular pain, unspecified (principal)
CPT/HCPCS: 80306; 80324; 80346; 80349; 81599

== ENCOUNTER 2021-09-04 23:45 | Emergency (ER) | payer MEDICAID ==
--- NOTE | 2021-09-05 00:34 | ED Physician Documentation ---
PD HPI LOWER EXT INJURY - Stated complaint Stated Complaint: GLF R LEG/HIP PX - Chief complaint Chief Complaint: Trauma Ext - History obtained from History obtained from: Patient - History of Present Illness PD HPI LOW EXT INJURY LOCATION: Right, Hip Type of injury: Fall (he was up on a loft area in workshop that did not have a railing. He lost balance and fell about 5 feet onto right hip/pelvis area. Denies injury/pain to chest/abd/head. Pain with rigth hip movement/attempted walking. He called friend, who assisted/carried him to car and drove here.) Where injury occurred: Home Timing - onset: How many minutes ago (30), Today Timing - duration: Hours (1/2-1) Timing - details: Abrupt onset, Still present Worsened by: Moving, Palpating Associated symptoms: Discolored (some pallor of right foot, which he says is common for him.). No: Weakness, Numbness Contributing factors: No: Anticoagulated, Prior ortho surgery Similar symptoms before: Has not had sx before Recently seen: Not recently seen Review of Systems Constitutional: denies: Fever, Chills Nose: denies: Rhinorrhea / runny nose, Congestion Throat: denies: Sore throat Cardiac: reports: Other (commonly dusky appearance of feet, right more than left.). denies: Chest pain / pressure, Palpitations, Pedal edema, Calf pain Respiratory: denies: Dyspnea, Cough GI: denies: Abdominal Pain, Nausea, Vomiting Skin: denies: Abrasion (s), Laceration (s) Musculoskeletal: denies: Neck pain, Back pain Neurologic: denies: Focal weakness, Numbness, Altered mental status, Headache Endocrine: denies: Easy bruising / bleeding PD PAST MEDICAL HISTORY - Past Medical History Cardiovascular: Hypertension, High cholesterol Respiratory: None, Other Neuro: None Endocrine/Autoimmune: None GI: Colon polyps, Other : Benign prostate hypertrophy, Retention, Kidney stones HEENT: None Psych: Depression Musculoskeletal: Osteoarthritis Derm: None, Other - Past Surgical History Past Surgical History: Yes General: Colonoscopy Ortho: Rotator cuff repair, Carpal Tunnel surgery HEENT: Tonsil/Adenoidectomy - Allergies Allergies/Adverse Reactions: Allergies Allergy/AdvReac Type Severity Reaction Status Date / Time FREEDOM Inhibitors Allergy Edema Verified 09/04/21 23:58 - Social History Does the pt smoke?: Yes Smoking Status: Current every day smoker Does the pt drink ETOH?: No Does the pt have substance abuse?: No - Immunizations Immunizations are current?: Yes - POLST Patient has POLST: No PD ED PE NORMAL - Vitals Vital signs reviewed: Yes - General General: Alert and oriented X 3, Well developed/nourished, Other (appears in pain due to right hip/thigh injury/swelling. ) - HEENT HEENT: Atraumatic, Pharynx benign - Neck Neck: Supple, no meningeal sign, No bony TTP, No adenopathy - Cardiac Cardiac: RRR, No murmur - Respiratory Respiratory: Clear bilaterally, Other (no chestwall tenderness.) - Abdomen Abdomen: Soft, Non tender - Derm Derm: Normal color, Warm and dry - Extremities Extremities: Other (The right hip is tender to palpation with any slight movement. His right foot has a somewhat dusky color but there is still capillary refill and palpable dorsalis pedis pulse. He has good movement and sensation in the foot and toes.) - Neuro Neuro: Alert and oriented X 3, No motor deficit, No sensory deficit, Normal speech Results - Vitals Vitals: Vital Signs - 24 hr 09/04/21 09/05/21 23:50 02:46 Temperature 36.0 C L Heart Rate 74 64 Respiratory 16 16 Rate Blood Pressure 125/80 140/91 H O2 Saturation 97 96 Oxygen O2 Source Room air - Labs Labs: Laboratory Tests 09/05/21 09/05/21 09/05/21 00:50 00:50 01:58 WBC 14.1 H RBC 5.79 Hgb 16.1 Hct 50.5 MCV 87.2 MCH 27.8 MCHC 31.9 L RDW 14.2 Plt Count 312 MPV 9.2 Neut # (Auto) 11.8 H Lymph # (Auto) 1.5 Chambers # (Auto) 0.7 Eos # (Auto) 0.1 Baso # (Auto) 0.0 Absolute Nucleated RBC 0.00 Nucleated RBC % 0.0 Sodium 137 Potassium 4.2 Chloride 98 L Carbon Dioxide 30 Anion Gap 9.0 BUN 29 H Creatinine 1.6 H Estimated GFR (MDRD) 44 L Glucose 139 H Calcium 8.7 Total Bilirubin 0.6 AST 18 ALT 17 Alkaline Phosphatase 94 Total Protein 7.3 Albumin 3.7 Globulin 3.6 Albumin/Globulin Ratio 1.0 Lipase 23 Nasal Adenovirus (PCR) NOT DETECTED Nasal B. parapertussis DNA (PCR) NOT DETECTED Nasal Coronavir 229E PCR NOT DETECTED Nasal Coronavir HKU1 PCR NOT DETECTED Nasal Coronavir NL63 PCR NOT DETECTED Nasal Coronavir OC43 PCR NOT DETECTED Nasal Enterovir/Rhinovir PCR NOT DETECTED Nasal Influenza B PCR NOT DETECTED Nasal Influenza A PCR NOT DETECTED Nasal Parainfluen 1 PCR NOT DETECTED Nasal Parainfluen 2 PCR NOT DETECTED Nasal Parainfluen 3 PCR NOT DETECTED Nasal Parainfluen 4 PCR NOT DETECTED Nasal RSV (PCR) NOT DETECTED Nasal B.pertussis DNA PCR NOT DETECTED Nasal C.pneumoniae (PCR) NOT DETECTED Woody Human Metapneumo PCR NOT DETECTED Nasal M.pneumoniae (PCR) NOT DETECTED Nasal SARS-CoV-2 (PCR) NOT DETECTED - Rads (name of study) chest xray Radiology: Prelim report reviewed (no acute process), See rad report right hip Radiology: Prelim report reviewed (Mildly displaced intertrochanteric fracture of the right hip without angulation.), See rad report PD MEDICAL DECISION MAKING - ED course Complexity details: considered differential (Accidental fall from about 5 feet onto his hip with a hip fracture clinically and by x-ray. No other apparent injuries.), d/w patient ED course: We do not have orthopedics available radiation control worker now and for the next 3 days. As such we will need to transfer him for definitive orthopedic care. Our self contained behavior unit teacher tried local facilities and was able to find a bed available nearest at [facility]. I talked to the hospitalist there who is accepting of the patient, Dr. Hernandez. Departure - Departure Disposition: 02 Transfer Acute Care Hosp Clinical Impression: Accidental fall Qualifiers: Encounter type: initial encounter Qualified Code(s): W19.XXXA - Unspecified fall, initial encounter Intertrochanteric fracture of right hip Qualifiers: Encounter type: initial encounter Fracture type: closed Fracture alignment: nondisplaced Qualified Code(s): S72.144A - Nondisplaced intertrochanteric fracture of right femur, initial encounter for closed fracture Condition: Stable Record reviewed to determine appropriate education?: Yes
[2021-09-05] MEDS ORDERED: SODIUM CHLORIDE 0.9% 1,000 ML IV STA (00:40)
[2021-09-05] MEDS ORDERED: KETOROLAC 30 MG/ML VIAL IVP STA (00:40)
[2021-09-05] MEDS ORDERED: HYDROmorphone 1 MG/ML CARPUJECT IVP STA ×2 (00:40→02:52)
[2021-09-05 00:55] LABS: BASOPHILS % (AUTO) 0.2 %; EOSINOPHILS # (AUTO) 0.1 10^3/uL (0.0-0.7); EOSINOPHILS % (AUTO) 0.4 %; HCT - HEMATOCRIT 50.5 % (42.0-52.0); HGB - HEMOGLOBIN 16.1 g/dL (14.0-18.0); LYMPHOCYTES # (AUTO) 1.5 10^3/uL (1.5-3.5); LYMPHOCYTES % (AUTO) 10.3 %; MEAN CORPUSCULAR HEMOGLOBIN 27.8 pg (27.0-31.0); MEAN CORPUSCULAR HGB CONC 31.9 g/dL (32.0-36.0); MEAN CORPUSCULAR VOLUME 87.2 fL (80.0-94.0); MEAN PLATELET VOLUME 9.2 fL (7.4-11.4); MONOCYTES # (AUTO) 0.7 10^3/uL (0.0-1.0); MONOCYTES % (AUTO) 4.8 %; NEUTROPHILS # (AUTO) 11.8 10^3/uL (1.5-6.6); NEUTROPHILS % (AUTO) 83.9 %; PLT - PLATELET COUNT 312 10^3/uL (130-450); RED BLOOD COUNT 5.79 10^6/uL (4.70-6.10); RED CELL DISTRIBUTION WIDTH 14.2 % (12.0-15.0); WHITE BLOOD COUNT 14.1 x10^3/uL (4.8-10.8)
[2021-09-05 01:07] LABS: ALBUMIN 3.7 g/dL (3.2-5.5); BILIRUBIN,TOTAL 0.6 mg/dL (0.2-1.0); CALCIUM 8.7 mg/dL (8.5-10.3); CREATININE 1.6 mg/dL (0.6-1.2); POTASSIUM 4.2 mmol/L (3.5-5.0); TOTAL PROTEIN 7.3 g/dL (6.7-8.2)
--- NOTE | 2021-09-05 01:58 | XRAY Report ---
PROCEDURE: Femur 2V RT INDICATIONS: Fall/R femur deformity, c/o pain TECHNIQUE: 2 views of the femur were acquired. COMPARISON: None. FINDINGS: Bones: Impacted and mildly comminuted intertrochanteric proximal femur fracture with varus deformity. Femoral acetabular joint remains intact. Distally, the femur is intact. No suspicious bony lesions. Soft tissues: No suspicious soft tissue calcifications or masses. Mild atherosclerotic calcificatio n. IMPRESSION: Comminuted and impacted intertrochanteric right femur fracture. Reviewed by: Corinne Florian MD on 09/05/2021 1:57 AM PDT Approved by: Corinne Florian MD on 09/05/2021 1:57 AM PDT Station ID: [id number]
--- NOTE | 2021-09-05 02:02 | XRAY Report ---
PROCEDURE: Chest 1 View X-Ray INDICATIONS: chest pain TECHNIQUE: One view of the chest was acquired. COMPARISON: None currently available FINDINGS: Surgical changes and devices: None. Lungs and pleura: No pleural effusions or pneumothorax. Lungs demonstrate occasional scattered tiny rounded nodules, likely granulomas in both lungs. Lungs are otherwise clear. Mediastinum: Mediastinal contours appear normal. Heart size is normal. Bones and chest wall: No suspicious bony lesions. Overlying soft tissues appear unremarkable. IMPRESSION: 1. No acute cardiopulmonary disease. 2. Probable remote exposure to granulomatous disease. Reviewed by: Corinne Florian MD on 09/05/2021 2:01 AM PDT Approved by: Corinne Florian MD on 09/05/2021 2:01 AM PDT Station ID: [id number]
--- NOTE | 2021-09-05 02:04 | XRAY Report ---
PROCEDURE: Hip w/Pelvis 2-3V RT INDICATIONS: fall from height TECHNIQUE: AP pelvis with lateral view(s) of the the right hip(s). COMPARISON: None. FINDINGS: Bones: Comminuted, impacted, and displaced intertrochanteric proximal femur fracture. There is varus deformity of the proximal femur. No femoral acetabular dislocation. The pelvis otherwise appears inta ct. No suspicious bony lesions. Soft tissues: The visualized bowel gas pattern is normal. No suspicious soft tissue calcifications. IMPRESSION: Comminuted, impacted, and mildly displaced intertrochanteric right hip fracture. Reviewed by: Corinne Florian MD on 09/05/2021 2:03 AM PDT Approved by: Corinne Florian MD on 09/05/2021 2:03 AM PDT Station ID: [id number]
[2021-09-05 02:50] VITALS: BP 140/91
[2021-09-05] MEDS ORDERED: diazePAM INJ 5 MG/ML SYRINGE IVP STA (02:52)
[2021-09-05 03:07] LABS: B. PARAPERTUSSIS- RESP PCR PAN NOT DETECTED; B. PERTUSSIS- RESP PCR PANEL NOT DETECTED; C. PNEUMONIAE- RESP PCR PANEL NOT DETECTED; CORONAVIRUS 229E-RESP PCR NOT DETECTED; CORONAVIRUS HKU1-RESP PCR NOT DETECTED; CORONAVIRUS NL63-RESP PCR NOT DETECTED; CORONAVIRUS OC43-RESP PCR NOT DETECTED; HUMAN METAPNEUMOVIRUS NOT DETECTED; INFLUENZA A- RESP PCR PANEL NOT DETECTED; INFLUENZA B - RESP PCR PANEL NOT DETECTED; M. PNEUMONIAE- RESP PCR PANEL NOT DETECTED; PARAINFLUENZA VIRUS 1 NOT DETECTED; PARAINFLUENZA VIRUS 2 NOT DETECTED; PARAINFLUENZA VIRUS 3 NOT DETECTED; PARAINFLUENZA VIRUS 4 NOT DETECTED; RHINOVIRUS/ENTEROVIRUS NOT DETECTED; RSV- RESP PCR PANEL NOT DETECTED; SARS-CoV-2 -RESP PCR PANEL NOT DETECTED
== END 2021-09-05 04:21 | disposition short-term general hospital (02) ==
LOC: ED 23:45
DX: S72.141A Displaced intertrochanteric fracture of right femur, initial encounter for closed fracture (principal); W17.89XA Other fall from one level to another, initial encounter; Y93.H3 Activity, building and construction; Y92.008 Other place in unspecified non-institutional (private) residence as the place of occurrence of the external cause; F17.200 Nicotine dependence, unspecified, uncomplicated; Z20.822 Contact with and (suspected) exposure to COVID-19
CPT/HCPCS: 0202U; 36415; 71045; 73502; 73552; 80053; 83690; 85025; 96374; 96375; 99282; 99285; J1170

== ENCOUNTER 2021-09-05 04:07 | Outpatient (CLI) | payer MEDICAID | END 2021-09-05 04:08 | disposition short-term general hospital (02) | LOC: EMS 04:07 | PROVIDERS: ATTEND Emergency Medicine | DX: S72.001A Fracture of unspecified part of neck of right femur, initial encounter for closed fracture (principal); W10.9XXA Fall (on) (from) unspecified stairs and steps, initial encounter; Y93.H3 Activity, building and construction; Y92.009 Unspecified place in unspecified non-institutional (private) residence as the place of occurrence of the external cause | CPT/HCPCS: A0425; A0428 ==

== ENCOUNTER 2021-09-16 14:38 | Outpatient (CLI) | payer MEDICAID ==
--- NOTE | 2021-09-17 10:58 | XRAY Report ---
PROCEDURE: Hip w/Pelvis 1V RT INDICATIONS: FX OF HEAD AND NECK OF R FEMUR TECHNIQUE: AP pelvis with lateral view(s) of the right hip(s). COMPARISON: X-ray femur 09/05/2021 FINDINGS: Bones: There is been interval right femoral pin fixation with good anatomic alignment. Hardware is in tact. Fracture lucencies remain visible within the trochanter. Pelvic ring appears intact. No suspic ious bony lesions. Soft tissues: The visualized bowel gas pattern is normal. No suspicious soft tissue calcifications. IMPRESSION: Right hip fixation as above. Reviewed by: Sandra Del Valle MD on 09/17/2021 10:57 AM PST Approved by: Sandra Del Valle MD on 09/17/2021 10:57 AM PST Station ID: [id number]
== END 2021-09-16 23:59 | disposition home or self-care (01) ==
LOC: DI.N 14:38
PROVIDERS: ATTEND Physician Assistant
DX: S72.091D Other fracture of head and neck of right femur, subsequent encounter for closed fracture with routine healing (principal)

== ENCOUNTER 2021-10-21 15:30 | Outpatient (CLI) | payer MEDICAID ==
--- NOTE | 2021-10-22 10:57 | XRAY Report ---
PROCEDURE: Hip w/Pelvis 2V RT INDICATIONS: FX OF HEAD AND NECK OF R FEMUR TECHNIQUE: AP pelvis with lateral view(s) of the right hip(s). COMPARISON: 09/05/2021 and 09/16/2021. FINDINGS: Bones: Postsurgical changes compatible with intertrochanteric right femur fracture noted which are s table compared to prior exams. Orthopedic hardware is in expected position. Orthopedic hardware is in tact. There is anatomic alignment of right femur fracture. No fractures or dislocations. Pelvic ring appears intact. No suspicious bony lesions. Soft tissues: The visualized bowel gas pattern is normal. No suspicious soft tissue calcifications. IMPRESSION: Stable postsurgical changes compatible with ORIF of right femur fracture. Stable alignment of right femur fracture compared to 09/16/2021. Reviewed by: Romelia Vasquez MD, PhD on 10/22/2021 10:55 AM PST Approved by: Romelia Vasquez MD, PhD on 10/22/2021 10:55 AM PST Station ID: [id number]
== END 2021-10-21 23:59 | disposition home or self-care (01) ==
LOC: DI.N 15:30
PROVIDERS: ATTEND Physician Assistant
DX: S72.091D Other fracture of head and neck of right femur, subsequent encounter for closed fracture with routine healing (principal)

== ENCOUNTER 2021-11-24 15:52 | Outpatient (CLI) | payer MEDICAID ==
--- NOTE | 2021-11-24 16:12 | XRAY Report ---
PROCEDURE: Hip 1 View RT INDICATIONS: HIP ORIF F/U TECHNIQUE: 2 views of the hip/femur were acquired. COMPARISON: Prior studies dating back to September 16, 2021. FINDINGS: BONES/JOINT: Redemonstrated fixation hardware of the right intertrochanteric fracture which involves the proximal femoral diaphysis. No significant interval change or evidence of hardware compromise com pared to the most recent prior study. The remaining visualized osseous structures appear maintained. SOFT TISSUES: No focal abnormality. Vascular calcifications are seen. IMPRESSION: 1.No significant interval change. Reviewed by: Rhett Up MD on 11/24/2021 4:11 PM PST Approved by: Rhett Up MD on 11/24/2021 4:11 PM PST Station ID: [id number]
== END 2021-11-24 15:53 | disposition home or self-care (01) ==
LOC: DI.WOS 15:52
PROVIDERS: ATTEND Physician Assistant
DX: S72.091D Other fracture of head and neck of right femur, subsequent encounter for closed fracture with routine healing (principal)

== ENCOUNTER 2021-12-04 09:59 | Outpatient (CLI) | payer MEDICAID ==
--- NOTE | 2021-12-04 18:18 | XRAY Report ---
PROCEDURE: Hip 2 View RT INDICATIONS: FOLLOW UP HIP PAIN AND FRACTURE TECHNIQUE: AP and lateral views of the hip were acquired. COMPARISON: 11/24/2021 FINDINGS: Bones: Status post open reduction internal fixation of right intertrochanteric proximal femur fractur e with anterograde intramedullary ivis and dynamic compression screw fixation. Distal locking screw is also present. Stable postsurgical alignment. No evidence for hardware complication or failure. No wick spicious bony lesions. The visualized pelvic ring appears intact. Degenerative changes of the bilat eral hips and lower lumbar spine. Soft tissues: No suspicious soft tissue calcifications or masses. IMPRESSION: Stable postsurgical changes from ORIF of right intertrochanteric proximal femur fracture. No evidence for hardware consultation. Reviewed by: Javier De La Cruz MD on 12/04/2021 6:16 PM PST Approved by: Javier De La Cruz MD on 12/04/2021 6:16 PM PST Station ID: [id number]
== END 2021-12-04 10:00 | disposition home or self-care (01) ==
LOC: DI.WOS 09:59
PROVIDERS: ATTEND Physician Assistant
DX: S72.141D Displaced intertrochanteric fracture of right femur, subsequent encounter for closed fracture with routine healing (principal)

== ENCOUNTER 2022-02-13 12:50 | Outpatient (CLI) | payer MEDICAID ==
--- NOTE | 2022-02-13 17:02 | CT Report ---
PROCEDURE: Low Dose Lung Cancer Screen INDICATIONS: SPECIAL SCREENING FOR MALIGNANT NEOPLASM OF THE RESPRIRATORY ORGA TECHNIQUE: Noncontrast low-dose images were acquired from the pulmonary apices to the posterior costophrenic ang les. Multiplanar MIP reformats were then acquired. For radiation dose reduction, the following was used: automated exposure control, adjustment of mA and/or kV according to patient size. COMPARISON: None. FINDINGS: Image quality: Excellent. Lungs and pleura: Calcified granuloma is present in the right upper lobe series 4 image 142. No effu sions or consolidations. Mediastinum: Heart size is normal. No pericardial effusion. No mediastinal adenopathy by size crit eria. Thoracic aorta and central pulmonary arteries are normal in size. Esophagus is normal in jarred george. No hiatal hernia. Bones and chest wall: No suspicious bony lesions. No vertebral body compression fractures. No axil yu or supraclavicular adenopathy by size criteria. The thyroid is normal in size and there are no incidental findings. Abdomen: Simple renal cyst is partially visualized. Visualized upper abdomen solid organs and bowel loops appear normal in the absence of contrast. IMPRESSION: Calcified granuloma most suggestive of prior granulomatous disease. Lung rads category 1. Recommend CT annual screening. CLINICAL RECOMMENDATION STATEMENTS: In patients <35 years with an ITN detected on CT, MRI, or extrathyroidal ultrasound, the Committee re commends further evaluation with dedicated thyroid ultrasound if the nodule is "e1 cm and has no susp icious imaging features, and if the patient has normal life expectancy. In patients "e35 years with an ITN detected on CT, MRI, or extrathyroidal ultrasound, the Committee r ecommends further evaluation with dedicated thyroid ultrasound if the nodule is "e1.5 cm and has no s uspicious imaging features, and if the patient has normal life expectancy. (ACR, 2014) Reviewed by: Sandra Del Valle MD on 02/13/2022 5:01 PM PDT Approved by: Sandra Del Valle MD on 02/13/2022 5:01 PM PDT Station ID: [id number]
== END 2022-02-13 12:51 | disposition home or self-care (01) ==
LOC: DI 12:50
PROVIDERS: ATTEND Physician Assistant
DX: Z12.2 Encounter for screening for malignant neoplasm of respiratory organs (principal); J84.10 Pulmonary fibrosis, unspecified

== ENCOUNTER 2023-01-08 10:42 | Outpatient (CLI) | payer MEDICAID ==
--- NOTE | 2023-01-08 13:52 | Ultrasound Report ---
PROCEDURE: Testicle INDICATIONS: RIGHT ORCHIALGIA TECHNIQUE: Real-time scanning was performed of the scrotum and testicles, with image documentation. Color and p ulse Doppler interrogation was performed of both testicles. COMPARISON: None. FINDINGS: Right: Testicle is normal in size at 3.4 x 2.4 cm, and homogenous in echotexture. Epididymis is nor mal in overall size and morphology. Moderate right-sided hydrocele. Mild scrotal wall thickening. Left: Testicle is normal in size at 3.3 x 2.2 x 2.0 cm, and homogeneous in echotexture. Epididymis is normal in overall size and morphology. Small hydrocele. Mild scrotal thickening. The testicle is slightly high within the scrotal sac. Doppler: Color and pulse Doppler demonstrate normal and symmetric arterial flow in both testicles. IMPRESSION: Moderate right and small left hydrocele. The left testicle is slightly high within the scrotal sac, likely of little clinical significance at this age. Reviewed by: Ariel Mckeon on 01/08/2023 1:51 PM PST Approved by: Ariel Mckeon on 01/08/2023 1:51 PM PST Station ID: [id number]
== END 2023-01-08 10:43 | disposition home or self-care (01) ==
LOC: DI 10:42
PROVIDERS: ATTEND Urology
DX: N43.3 Hydrocele, unspecified (principal)

== ENCOUNTER 2024-01-29 08:27 | Emergency (ER) | payer MEDICAID ==
[2024-01-29] MEDS: KETOROLAC 30 MG/ML VIAL IVP STA (10:34)
[2024-01-29] MEDS: SODIUM CHLORIDE 0.9% 1,000 ML IV STA (10:34)
[2024-01-29 10:51] LABS: BASOPHILS % (AUTO) 0.2 %; EOSINOPHILS % (AUTO) 0.4 %; HCT - HEMATOCRIT 54.3 % (42.0-52.0); HGB - HEMOGLOBIN 17.3 g/dL (14.0-18.0); LYMPHOCYTES # (AUTO) 1.5 10^3/uL (1.5-3.5); LYMPHOCYTES % (AUTO) 15.7 %; MEAN CORPUSCULAR HEMOGLOBIN 26.7 pg (27.0-31.0); MEAN CORPUSCULAR HGB CONC 31.9 g/dL (32.0-36.0); MEAN CORPUSCULAR VOLUME 83.9 fL (80.0-94.0); MEAN PLATELET VOLUME 8.7 fL (7.4-11.4); MONOCYTES # (AUTO) 0.5 10^3/uL (0.0-1.0); MONOCYTES % (AUTO) 5.2 %; NEUTROPHILS # (AUTO) 7.6 10^3/uL (1.5-6.6); NEUTROPHILS % (AUTO) 78.3 %; PLT - PLATELET COUNT 360 10^3/uL (130-450); RED BLOOD COUNT 6.47 10^6/uL (4.70-6.10); RED CELL DISTRIBUTION WIDTH 14.3 % (12.0-15.0); WHITE BLOOD COUNT 9.7 x10^3/uL (4.8-10.8)
[2024-01-29 11:08] LABS: ALBUMIN 3.7 g/dL (3.2-5.5); ALBUMIN/GLOBULIN RATIO 0.9 (1.0-2.2); ALKALINE PHOSPHATASE 104 IU/L (42-121); ALT ALANINE AMINOTRANSFERASE 11 IU/L (10-60); AST ASPARTATE AMINOTRANSFERASE 12 IU/L (10-42); BILIRUBIN,TOTAL 0.6 mg/dL (0.2-1.0); BUN - BLOOD UREA NITROGEN 10 mg/dL (6-20); CALCIUM 9.8 mg/dL (8.5-10.3); CARBON DIOXIDE - CO2 32 mmol/L (21-32); CHLORIDE 99 mmol/L (101-111); CREATININE 1.1 mg/dL (0.6-1.3); GFR - MDRD 68 (>89); GLUCOSE 101 mg/dL (74-104); POTASSIUM 3.8 mmol/L (3.5-4.5); SODIUM 136 mmol/L (135-145); TOTAL PROTEIN 7.7 g/dL (6.4-8.9)
[2024-01-29 11:12] LABS: LIPASE < 10 U/L (11-82)
--- NOTE | 2024-01-29 11:32 | ED Physician Documentation ---
PD HPI MALE - Stated complaint Stated Complaint: - Chief complaint Chief Complaint: Abd Pain - History obtained from History obtained from: Patient - History of Present Illness Timing - onset: How many years ago (1) Timing - duration: Years (1) Timing - details: Gradual onset, Still present, Waxing and waning Associated symptoms: Testiclar pain PD HPI MALE CONTRIB FACTORS: Not sexually active Similar symptoms before: Diagnosis (undescended testicle.) Recently seen: Not recently seen - Additional information Additional information: Griffin De Los Santos is a 63-year-old male without a problem with undescended testes for a number of years. He relates that he has had an orchiopexy done a number of years ago which relieved him of symptoms for about 6 months. Since then he has had symptoms on and off for the past 8 years. Symptoms have been as bad as today previously. He has seen a number of urologists. He has had 1 procedure done. He had a number of imaging procedures done. It does appear that he has an undescended testes on the left side.He is complaining about severe pain with even trying to stand up and walk. He indicates to me that he has never taken any narcotic pain reliever for this pain. He is taking some Mobic. This does not seem to be helpful.He denies any discharge. Review of Systems Constitutional: denies: Fever, Chills, Myalgias Eyes: denies: Decreased vision Ears: denies: Ear pain Nose: denies: Congestion Throat: denies: Sore throat Cardiac: denies: Chest pain / pressure Respiratory: denies: Dyspnea, Cough GI: reports: Nausea. denies: Abdominal Pain, Vomiting, Constipation, Diarrhea : reports: Testicular pain. denies: Dysuria, Frequency Skin: denies: Rash Musculoskeletal: denies: Neck pain, Back pain, Extremity pain PD PAST MEDICAL HISTORY - Past Medical History Past Medical History: Yes Cardiovascular: Hypertension, High cholesterol Respiratory: None, Other Neuro: None Endocrine/Autoimmune: None GI: Colon polyps, Other : Benign prostate hypertrophy, Retention, Kidney stones, Other HEENT: None Psych: Depression Musculoskeletal: Osteoarthritis Derm: None, Other - Past Surgical History Past Surgical History: Yes General: Colonoscopy Ortho: Rotator cuff repair, Carpal Tunnel surgery HEENT: Tonsil/Adenoidectomy - Present Medications Home Medications: Ambulatory Orders Medication Instructions Recorded Confirmed Amlodipine Besylate [Norvasc] 10 mg PO DAILY 01/29/24 01/29/24 HYDROcod/ACETAM 5/325 [Greene 5/325] 1 - 2 tablet PO Q6H PRN #14 tablet 01/29/24 Metoprolol Succinate [Toprol Xl] 50 mg PO BID 01/29/24 01/29/24 diazePAM [Valium] 10 mg PO DAILY 01/29/24 01/29/24 - Allergies Allergies/Adverse Reactions: Allergies Allergy/AdvReac Type Severity Reaction Status Date / Time FREEDOM Inhibitors Allergy Edema Verified 01/29/24 08:40 - Social History Does the pt smoke?: Yes Smoking Status: Current every day smoker Does the pt drink ETOH?: No Does the pt have substance abuse?: No - Immunizations Immunizations are current?: Yes - POLST Patient has POLST: No PD ED PE NORMAL - Vitals Vital signs reviewed: Yes (tachy and hypertensive ) - General General: Alert and oriented X 3, Well developed/nourished, Other (63-year-old male moaning in pain thin appearing scruffy looking) - HEENT HEENT: Atraumatic, PERRL, EOMI - Neck Neck: Supple, no meningeal sign, No bony TTP - Cardiac Cardiac: No murmur, Other (tachy to 100) - Respiratory Respiratory: No respiratory distress, Clear bilaterally - Abdomen Abdomen: Normal bowel sounds, Soft, Non tender, Non distended, No organomegaly - Male Male : Other (single testicle in the scrotum. The testicle is tender and there is mass in the left inguinal canal and tenderness there as well. ) - Back Back: No CVA TTP, No spinal TTP - Derm Derm: Normal color, No rash - Extremities Extremities: No deformity, No edema - Neuro Neuro: Alert and oriented X 3, classification analyst 2-12 intact, No motor deficit, No sensory deficit, Normal speech Eye Opening: Spontaneous Motor: Obeys Commands Verbal: Oriented GCS Score: 15 - Psych Psych: Normal mood, Normal affect Results - Vitals Vitals: Vital Signs - 24 hr 01/29/24 01/29/24 01/29/24 08:36 10:38 12:00 Temperature 36.4 C L Heart Rate 106 H 64 86 Respiratory 20 14 14 Rate Blood Pressure 176/102 H 169/98 H 176/99 H O2 Saturation 100 99 98 01/29/24 13:33 Temperature Heart Rate 76 Respiratory 14 Rate Blood Pressure 150/82 H O2 Saturation 98 Oxygen O2 Source Room air - Labs Labs: Laboratory Tests 01/29/24 01/29/24 01/29/24 10:47 10:47 12:43 WBC 9.7 RBC 6.47 H Hgb 17.3 Hct 54.3 H MCV 83.9 MCH 26.7 L MCHC 31.9 L RDW 14.3 Plt Count 360 MPV 8.7 Neut # (Auto) 7.6 H Lymph # (Auto) 1.5 Darke # (Auto) 0.5 Eos # (Auto) 0.0 Baso # (Auto) 0.0 Absolute Nucleated RBC 0.00 Nucleated RBC % 0.0 Sodium 136 Potassium 3.8 Chloride 99 L Carbon Dioxide 32 Anion Gap 5.0 L BUN 10 Creatinine 1.1 Estimated GFR (MDRD) 68 L Glucose 101 Calcium 9.8 Total Bilirubin 0.6 AST 12 ALT 11 Alkaline Phosphatase 104 Total Protein 7.7 Albumin 3.7 Globulin 4.0 Albumin/Globulin Ratio 0.9 L Lipase < 10 L Urine Color LIGHT YELLOW Urine Clarity CLEAR Urine pH 6.5 Ur Specific [place] <=1.005 Urine Protein NEGATIVE Urine Glucose (UA) NEGATIVE Urine Ketones NEGATIVE Urine Occult Blood SMALL H Urine Nitrite NEGATIVE Urine Bilirubin NEGATIVE Urine Urobilinogen 0.2 (NORMAL) Ur Leukocyte Esterase NEGATIVE Urine RBC 0-5 Urine WBC 0-3 Ur Squamous Epith Cells NONE SEEN Urine Bacteria Few Ur Microscopic Review INDICATED Urine Culture Comments NOT INDICATED - Rads (name of study) scrotal ultrasounc Relevant Findings:: Prelim report reviewed (Impression: Undescended left testicle. Bilateral hydroceles. No torsion.), EMP independent interpretation of test PD Medical Decision Making - ED course Complexity details: reviewed old records, reviewed results, re-evaluated patient, considered differential, d/w patient Reviewed Lab Results: We reviewed a complete blood count showing a normal white blood cell count of 9.7 hemoglobin was normal at 17.3 hematocrit elevated at 54.3 platelet count 360,000 chemistries showed normal electrolytes normal kidney and liver function urinalysis small occult blood with a specific gravity 1.005 otherwise negative. The values for elevated hemoglobin and hematocrit were higher than the normal for the patient by a small fraction. This is consistent with dehydration. ED course: 63-year-old Griffin De Los Santos presents to the emergency department with chronic testicular pain and an undescended left testicle. His primary reason for coming to the emergency department today was intolerance of the pain that had been present for more than a year. He does indicate an increase in the past 10 days. He also indicates he has had this similar pain this bad previously a number of times. He is ready to try something stronger for pain. He did not get relief with the use of Toradol here in the emergency department and was administered Dilaudid with some improvement. We will place th patient on a short course of pain medication awaiting a follow-up with urology. We did repeat imaging with a new finding today of undescended testicle. Departure - Departure Disposition: 01 Home, Self Care Clinical Impression: Undescended left testicle Condition: Stable Instructions: Testicle Undescended, ED Contusion Testicles Or Scrotum Follow-Up: Fatimah Inman PA [Primary Care Provider] - Yvon Lal MD [Provider Admit Priv/Credential] - Prescriptions: HYDROcod/ACETAM 5/325 [Greene 5/325] 1 - 2 tablet PO Q6H PRN #14 tablet PRN Reason: Pain Comments: Griffin, today it looks like you have an undescended testicle on the left side and this has been causing you more pain than usual. You did get some relief with the use of the narcotic pain reliever and not much relief with the use of the anti-inflammatory. I have E scribed some hydrocodone for you to the [facility] in [place]. Follow-up with Dr. Lal as planned. The intention of this medication is for temporary use. Discharge Date/Time: 01/29/24 13:33
[2024-01-29] MEDS: HYDROmorphone 1 MG/ML CARPUJECT IVP STA (11:36)
[2024-01-29] MEDS: ONDANSETRON 4 MG/2 ML VIAL IVP STA (11:37)
[2024-01-29 12:42] VITALS: O2SAT 98
[2024-01-29 12:48] LABS: BILIRUBIN,URINE NEGATIVE (NEGATIVE); GLUCOSE, URINE (UA) NEGATIVE (NEGATIVE); KETONES,URINE (UA) NEGATIVE (NEGATIVE); LEUKOCYTE ESTERASE, URINE NEGATIVE (NEGATIVE); NITRITE,URINE NEGATIVE (NEGATIVE); OCCULT BLOOD,URINE SMALL (NEGATIVE); PH,URINE 6.5 PH (5.0-7.5); PROTEIN,URINE NEGATIVE (NEGATIVE); UROBILINOGEN,URINE 0.2 (NORMAL) E.U./dL (NORMAL)
[2024-01-29 12:56] LABS: CLARITY,URINE CLEAR (CLEAR)
[2024-01-29 13:03] LABS: BACTERIA,URINE Few /HPF (None Seen); RBC,URINE 0-5 /HPF (0-5); SQUAMOUS EPITHELIAL CELL,UR NONE SEEN (<= Few); WBC,URINE 0-3 /HPF (0-3)
[2024-01-29 13:39] VITALS: BP 150/82
--- NOTE | 2024-01-29 16:16 | Ultrasound Report ---
PROCEDURE: Testicle w/Doppler Limited INDICATIONS: severe testicular pain one testes undescended. TECHNIQUE: Real-time scanning was performed of the scrotum and testicles, with image documentation. Color and p ulse Doppler interrogation was performed of both testicles. COMPARISON: None. FINDINGS: Right: Testicle is normal in size at 3.3 x 2.2 x 2.6 cm, and homogenous in echotexture. Epididymis is normal in overall size and morphology. Moderate hydrocele. No varicoceles. Overlying scrotal ski n is normal in thickness. Left: Testicle is normal in size at 3.5 x 2 point 0.8 cm, and homogeneous in echotexture. Testicle i s within the inguinal canal. Epididymis is normal in overall size and morphology. Small hydrocele. N o varicoceles. Overlying scrotal skin is normal in thickness. Doppler: Color and pulse Doppler demonstrate normal and symmetric arterial flow in both testicles. IMPRESSION: Undescended left testicle. Bilateral hydroceles. No torsion Reviewed by: Clay Bell MD on 01/29/2024 11:45 AM JOYCE Approved by: Clay Bell MD on 01/29/2024 11:45 AM JOYCE Station ID: [id number]
== END 2024-01-29 13:33 | disposition home or self-care (01) ==
LOC: ED 08:27
DX: Q53.10 Unspecified undescended testicle, unilateral (principal); N50.812 Left testicular pain; G89.29 Other chronic pain; I10 Essential (primary) hypertension; F17.200 Nicotine dependence, unspecified, uncomplicated
CPT/HCPCS: 36415; 76870; 80053; 81001; 83690; 85025; 93976; 96374; 96375; 99284; J1170; 81003; 87086

== ENCOUNTER 2024-03-20 07:44 | Day surgery (SDC) | payer MEDICAID ==
[2024-03-20] MEDS: LACTATED RINGERS 1,000 ML IV ONE ×2 (07:53→11:29)
[2024-03-20] MEDS ORDERED: BACITRACIN ZINC OINT 1 PACKET TOP ONE (08:31)
[2024-03-20] MEDS ORDERED: BUPIVACAINE 0.5% PF 10 ML VIAL ONE (08:31)
[2024-03-20] MEDS ORDERED: LIDOCAINE-MPF 1% 30 ML VIAL ONE (08:32)
--- NOTE | 2024-03-20 08:55 | ANESTHESIA ---
Pre-Anesthesia VS, & Labs - Diagnosis testicular pain - Procedure bilateral orchiopexy, possible left orchiectomy Vital Signs: Temp Pulse Resp BP Pulse Ox O2 Flow Rate 36.4 C L 62 12 148/89 H 100 0 03/20/24 08:07 03/20/24 08:07 03/20/24 08:07 03/20/24 08:07 03/20/24 08:07 03/20/24 08:07 Height: 5 ft 10 in Weight (kg): 58 kg Body Mass Index: 18.3 BMI Classification: Underweight - NPO >8 hours Home Medications and Allergies Amlodipine Besylate [Norvasc] 10 mg PO DAILY 01/29/24 Metoprolol Succinate [Toprol Xl] 50 mg PO DAILY 01/29/24 diazePAM [Valium] 5 mg PO DAILY PRN 01/29/24 Allergies/Adverse Reactions: Allergies Allergy/AdvReac Type Severity Reaction Status Date / Time FREEDOM Inhibitors Allergy Edema Verified 01/29/24 08:40 Anes History & Medical History - Anesthetic History Anesthesia Complications: reports: No previous complications - Medical History Cardiovascular: reports: Hypertension, High cholesterol Pulmonary: reports: None, Other Gastrointestinal: reports: Colon polyps, Ulcerative colitis, Other Urinary: reports: Benign prostate hypertrophy, Retention, Kidney stones, Other Neuro: reports: None Musculoskeletal: reports: Osteoarthritis Endocrine/Autoimmune: reports: None Blood Disorders: reports: None Skin: reports: None, Other Smoking Status: Current every day smoker - Surgical History General: reports: Colonoscopy, Other Eyes Ears Nose Throat (EENT): reports: Tonsil/Adenoidectomy Orthopedic: reports: Rotator cuff repair, Carpal Tunnel surgery, Other Exam General: Alert, Oriented x3 Dental: WNL Mouth Opening: Greater than 4 Fingerbreadths Neck Mobility: Normal Mallampati classification: I Thyromental Distance: greater than 6 cm Respiratory: Lungs clear Cardiovascular: Regular rate Plan Anesthesia Type: General Consent for Procedure(s) Verified and Reviewed: Yes Code Status: Attempt Resuscitation ASA classification: 2-Mild systemic disease Is this case an emergency?: No
[2024-03-20] MEDS ORDERED: MIDAZOLAM 2 MG/2 ML VIAL ONE (09:01)
[2024-03-20] MEDS ORDERED: fentaNYL 100 MCG/2 ML VIAL ONE (09:02)
[2024-03-20] MEDS ORDERED: LIDOCAINE-PF 2% 10 ML AMP SUBQ ONE (09:02)
[2024-03-20] MEDS ORDERED: PROPOFOL 200 MG/20 ML VIAL IVP ONE (09:02)
[2024-03-20] MEDS ORDERED: ROCURONIUM 50 MG/5 ML VIAL ONE (09:03)
[2024-03-20] MEDS ORDERED: ONDANSETRON 4 MG/2 ML VIAL ONE (09:21)
[2024-03-20] MEDS ORDERED: DEXAMETHASONE 4 MG/ML VIAL ONE (09:21)
[2024-03-20] MEDS ORDERED: ceFAZolin 1 GM VIAL ONE (09:25)
[2024-03-20] MEDS ORDERED: SODIUM CHLORIDE 0.9% 10 ML VIAL IVP ONE (09:31)
[2024-03-20] MEDS ORDERED: ePHEDrine 50 MG/ML VIAL IVP ONE (09:31)
[2024-03-20] MEDS: BUPIVACAINE 0.5% PF 30 ML VIAL INFIL ONE ×2 (09:40)
[2024-03-20] MEDS: LIDOCAINE 1% 50 ML MDV SUBQ ONE ×2 (09:41)
[2024-03-20] MEDS ORDERED: PHENYLEPHRINE HCL 0.5 MG/5 ML AMPULE ONE (09:46)
[2024-03-20] MEDS ORDERED: SUGAMMADEX 200 MG/2 ML VIAL IVP ONE (10:14)
[2024-03-20] MEDS ORDERED: ONDANSETRON 4 MG/2 ML VIAL IVP PRN ×2 (10:40→11:01)
--- NOTE | 2024-03-20 10:55 | Discharge Plan ---
Discharge Plan Problem Reviewed?: Yes Disposition: Home, Self Care Condition: Good Prescriptions: Docusate Sodium 100Mg Capsule [Colace 100Mg Capsule] 100 mg PO DAILY #7 cap oxyCODONE [Roxicodone] 5 mg PO Q4H PRN #12 tablet PRN Reason: Pain Diet: Regular Activity Restrictions: Additional Comments (as instructed) Shower Restrictions: No Driving Restrictions: No Instruction Topics: Orchiectomy Dc Additional Instructions or Follow Up instructions: You will be contacted for follow-up with Dr. Lal in 6 weeks time No Smoking: If you smoke, Please STOP! Call for help. Follow-up with: Yvon Lal MD [Provider Admit Priv/Credential] -
[2024-03-20] MEDS ORDERED: ATROPINE ABBOJECT 1 MG/10 ML SYRINGE IVP PRN (11:01)
[2024-03-20] MEDS ORDERED: METOCLOPRAMIDE 10 MG/2 ML VIAL IVP PRN (11:01)
[2024-03-20] MEDS ORDERED: ePHEDrine 50 MG/ML VIAL IVP PRN (11:01)
[2024-03-20] MEDS ORDERED: MORPHINE 2 MG/ML CARPUJECT IVP PRN (11:01)
[2024-03-20] MEDS ORDERED: NALOXONE 0.4 MG/ML VIAL IVP PRN (11:01)
[2024-03-20] MEDS ORDERED: fentaNYL 100 MCG/2 ML VIAL IVP PRN (11:01)
--- NOTE | 2024-03-20 11:01 | OPERATIVE REPORT ---
Operative Report - General Procedure Date: 03/20/24 Planned Procedure: Bilateral orchiopexy, possible left orchiectomy Pre-Op Diagnosis: Left undescended testicle, bilateral retractile testicles Procedure Performed: Left inguinal orchiectomy, right orchiopexy Post Op Diagnosis: Left undescended testicle, bilateral retractile testicles - Procedure Note Primary Surgeon: Lukasz Anesthesia Provider: JACK Diaz Anesthesia Technique: General ET tube Pathology: Left testicle Estimated Blood Loss (mL): 5 Findings: Left testicle and spermatic cord scarred in, could not mobilize well enough to get down to left scrotum and so was removed Right testicle orchiopexy Complications: none - Other Other Information/Narrative: After informed consent was obtained the patient was brought to the OR and laid the supine position. The patient was anesthetized per anesthesia protocols and prepped draped in usual sterile fashion. A formal timeout was performed confirming the patient, procedure and laterality. We could see that his left testicle was a formal timeout was performed reconfirming the patient, procedure and laterality. We could see that his left testicle was in the inguinal region and could not be brought down with easy manipulation. His right testicle was orthotopic. A combination of 1% lidocaine 0.25% Marcaine was used as local and instilled over the left inguinal area. Using combination of sharp dissection and cautery we dissected this down the spermatic cord which was then identified. It was quite scarred in. We were able to identify the testicle and after dissecting it free from its attachments we are able to deliver it through the inguinal incision. We opened up the tunica vaginalis to directly visualize the testicle. We attempted to mobilize the spermatic cord more but it was quite scarred in. We could not bring it down to the level of the scrotum with confidence. We therefore decided to remove the testicle. Separate and spermatic cord to 2 packets we suture-ligated with 0 silk suture. The testicle was removed with electrocautery. There was excellent hemostasis. The incision and area was irrigated with saline. The wound was closed with 3-0 Vicryl suture and 4-0 Monocryl suture. Attention was paid to the right side where local was instilled in the right hemiscrotum and a sharp incision was made over the right hemiscrotum. We d issected down to the tunica vaginalis which was then incised. The testicle was delivered. Using 4-0 Ethilon sutures we then tacked the testicle at 3 areas inferiorly laterally and medially into the inner wall of the scrotum. There was excellent hemostasis. We closed our toes with 3-0 Vicryl suture and then closed the skin using a series of horizontal mattress 4-0 chromic sutures Mastisol and Steri-Strips were placed over both incisions. And then a gauze and Tegaderm. This concluded the procedure and the patient tolerated the procedure well. He was brought to PACU without further incident. He will follow-up in 6 weeks time
--- NOTE | 2024-03-20 11:02 | ANESTHESIA POST OP EVALUATION ---
Anesthesia Post Eval - Post Anesthesia Eval Vitals: Last Vital Signs Temp 36.3 C L 03/20/24 10:58 Pulse 55 L 03/20/24 10:58 Resp 17 03/20/24 10:58 BP 162/86 H 03/20/24 10:58 Pulse Ox 100 03/20/24 10:58 O2 Flow Rate 0 03/20/24 08:07 CV Function Including HR & BP: Stable Pain Control: Satisfactory Nausea & Vomiting: Negative Mental Status: Baseline Respiratory Status: Airway Patent Hydration Status: Satisfactory Anesthesia Complications: None
[2024-03-20] MEDS ORDERED: HYDROmorphone 0.5 MG/0.5 ML SYRINGE ONE (11:14)
[2024-03-20] MEDS: HYDROmorphone 0.5 MG/0.5 ML SYRINGE IVP PRN (11:19)
[2024-03-20] MEDS ORDERED: oxyCODONE 5 MG TABLET ONE (11:54)
[2024-03-20] MEDS: oxyCODONE 5 MG TABLET PO PRN (11:55)
[2024-03-20 11:59] VITALS: BP 125/73; O2SAT 98
[2024-03-20] MEDS ORDERED: LACTATED RINGERS 1,000 ML IV SCH (12:00)
== END 2024-03-20 07:45 | disposition home or self-care (01) ==
LOC: SDS 07:44
PROVIDERS: ATTEND Urology
PROC: 0VS90ZZ Reposition Right Testis, Open Approach (ICD-10-PCS; 2024-03-20)
PROC: 0VTB0ZZ Resection of Left Testis, Open Approach (ICD-10-PCS; principal; 2024-03-20 09:30)
DX: Q55.22 Retractile testis (principal); Q53.112 Unilateral inguinal testis; N50.819 Testicular pain, unspecified; R63.6 Underweight; Z68.1 Body mass index [BMI] 19.9 or less, adult; N40.1 Benign prostatic hyperplasia with lower urinary tract symptoms; R33.8 Other retention of urine; R39.15 Urgency of urination; R35.0 Frequency of micturition; R35.1 Nocturia; F17.200 Nicotine dependence, unspecified, uncomplicated; I10 Essential (primary) hypertension
CPT/HCPCS: 54520; 54640; A9270; J1170; J2372; J7120

== ENCOUNTER 2024-06-25 07:17 | Emergency (ER) | payer MEDICAID ==
[2024-06-25] MEDS: KETOROLAC 30 MG/ML VIAL IVP STA (08:02)
--- NOTE | 2024-06-25 08:02 | ED Physician Documentation ---
History of Present Illness - Stated complaint Stated Complaint: ABD PX, MALE , POST SURGERY - Chief complaint Chief Complaint: Abd Pain - History obtained from History obtained from: Patient - History of Present Illness Timing: How many weeks ago (12) Pain level max: 10 Pain level now: 7 - Additonal information Additional information: 63-year-old male presents to the emergency department stating that he has left sided incisional pain and swelling. He states that he had a left testicle removal back in March 2024. He states that swelling has been present since that time. He states he saw his surgeon who referred him to another surgeon for a possible hernia. The second surgeon did not feel that it was a hernia and felt that it was more likely a postoperative seroma/hematoma. The patient has not followed up again with his initial surgeon. No fevers. No chills. He states the pain has continued to increase. No redness. There is swelling. He states he also has continued right testicular pain which is also been present for years. Review of Systems Constitutional: denies: Fever, Chills Cardiac: denies: Chest pain / pressure Respiratory: denies: Cough GI: reports: Nausea (States becomes nauseated when the pain is severe). denies: Vomiting, Diarrhea : denies: Dysuria, Frequency, Hesitancy Skin: denies: Rash Musculoskeletal: denies: Neck pain, Back pain Neurologic: denies: Headache PD PAST MEDICAL HISTORY - Past Medical History Cardiovascular: Hypertension, High cholesterol Respiratory: None, Other Neuro: None Endocrine/Autoimmune: None GI: Colon polyps, Ulcerative colitis, Other : Benign prostate hypertrophy, Retention, Kidney stones, Other HEENT: None Psych: Depression, Anxiety, Panic attacks Musculoskeletal: Osteoarthritis Derm: None, Other - Past Surgical History Past Surgical History: Yes General: Colonoscopy, Other Ortho: Rotator cuff repair, Carpal Tunnel surgery, Other HEENT: Tonsil/Adenoidectomy - Present Medications Home Medications: Ambulatory Orders Medication Instructions Recorded Confirmed Amlodipine Besylate [Norvasc] 10 mg PO DAILY 01/29/24 03/30/24 Metoprolol Succinate [Toprol Xl] 50 mg PO DAILY 01/29/24 03/30/24 diazePAM [Valium] 5 mg PO DAILY PRN 01/29/24 03/30/24 Docusate Sodium 100Mg Capsule 100 mg PO DAILY #7 cap 03/20/24 03/30/24 [Colace 100Mg Capsule] Amox/Clav 875/125 [Augmentin] 1 each PO Q8H #30 tablet 06/25/24 oxyCODONE [Roxicodone] 5 - 10 mg PO Q6H PRN #14 tablet 06/25/24 MDD 6 - Allergies Allergies/Adverse Reactions: Allergies Allergy/AdvReac Type Severity Reaction Status Date / Time FREEDOM Inhibitors Allergy Edema Verified 06/25/24 07:36 - Social History Does the pt smoke?: Yes Smoking Status: Current every day smoker Does the pt drink ETOH?: No Does the pt have substance abuse?: No - Immunizations Immunizations are current?: Yes - POLST Patient has POLST: No PD ED PE NORMAL - Vitals Vital signs reviewed: Yes - General General: Alert and oriented X 3, No acute distress - HEENT HEENT: Moist mucous membranes - Cardiac Cardiac: RRR - Respiratory Respiratory: No respiratory distress, Clear bilaterally - Abdomen Abdomen: Soft, Non distended, Other (Tender palpation left lower quadrant. Also has a 2 x 3 cm indurated swollen area to the left lateral incision. No skin changes. Otherwise normal examination of the abdomen and genitalia.) - Derm Derm: Warm and dry - Neuro Neuro: Alert and oriented X 3 - Psych Psych: Normal mood, Normal affect Results - Vitals Vitals: Vital Signs - 24 hr 06/25/24 06/25/24 07:36 09:48 Temperature 36.5 C 36.7 C Heart Rate 81 68 Respiratory 16 18 Rate Blood Pressure 173/123 H 172/101 H O2 Saturation 99 95 Oxygen O2 Source Room air - Labs Labs: Laboratory Tests 06/25/24 06/25/24 08:00 08:00 WBC 8.9 RBC 5.75 Hgb 15.6 Hct 48.3 MCV 84.0 MCH 27.1 MCHC 32.3 RDW 15.1 H Plt Count 347 MPV 9.0 Neut # (Auto) 5.9 Lymph # (Auto) 2.0 Bailey # (Auto) 0.8 Eos # (Auto) 0.2 Baso # (Auto) 0.0 Absolute Nucleated RBC 0.00 Nucleated RBC % 0.0 Sodium 139 Potassium 3.6 Chloride 103 Carbon Dioxide 30 Anion Gap 6.0 BUN 12 Creatinine 1.0 Estimated GFR (MDRD) 76 L Glucose 95 Calcium 9.1 Total Bilirubin 0.4 AST 14 ALT 17 Alkaline Phosphatase 121 Total Protein 8.0 Albumin 3.6 Globulin 4.4 H Albumin/Globulin Ratio 0.8 L Lipase < 10 L - Rads (name of study) CT abdomen pelvis Relevant Findings:: Final report received, See rad report PD Medical Decision Making - ED course Complexity details: reviewed results, re-evaluated patient, considered differential, d/w patient ED course: His CT scan shows a incarcerated fat-containing left inguinal hernia. His abdomen and pelvis CT also shows colitis. These are both relatively unchanged from his CT scan 3 months ago. Pain well-controlled here. Will place on Augmentin for the colitis to see if that resolves the colitis. Recommend outpatient colonoscopy. He can also follow-up with general surgery to discuss repair of his fat-containing inguinal hernia. Patient is well-appearing, nontoxic. Afebrile. No nausea or vomiting. Tolerating p.o. without difficulty. Ambulating without difficulty. Patient counseled regarding signs and symptoms for which I believe and urgent re-evaluation would be necessary. Patient with good understanding of and agreement to plan and is comfortable going home at this time This document was made in part using voice recognition software. While efforts are made to proofread this document, sound alike and grammatical errors may occur. Departure - Departure Disposition: 01 Home, Self Care Clinical Impression: Colitis, Left inguinal hernia Condition: Good Instructions: ED Hernia Inguinal Follow-Up: Fatimah Inman PA [Primary Care Provider] - Prescriptions: Amox/Clav 875/125 [Augmentin] 1 each PO Q8H #30 tablet oxyCODONE [Roxicodone] 5 - 10 mg PO Q6H PRN #14 tablet MDD 6 PRN Reason: pain Comments: Your prescription was sent to [facility] in [place]. Please follow-up with your doctor for further care. You should have a colonoscopy after completion of antibiotics. You also have a left inguinal fat-containing hernia, this can cause pain. You can follow-up with a surgeon to have this repaired. I am prescribing a short course of narcotic pain medication for you. These are potentially dangerous and addictive medications that should be used carefully. These medications may constipate you. Take an [id number] stool softener (docusate) twice daily with plenty of water while taking these medications. If you go 24 hours without a bowel movement, take [id number] miralax, per package instructions. Do not drink or drive while taking these medications. If you received narcotic or sedating medications while in the emergency dep artment, do not drive for 24 hours. Store this medication in a safe, secure place and out of reach of children. It is a violation of federal law to give or sell this medication to another person or to use in a manner other than prescribed. The ED will not refill narcotic prescriptions, including prescriptions lost or stolen. To dispose of unwanted medications: 1. [facility] at [address] in [place] has a medication drop box. They accept prescription medications (in pill form) Wednesday through Wednesday 9:00 a.m. to 5:00 p.m. 2. [facility] accepts prescription medications (in pill form only) for disposal year round. Call for more information. 3. Contact the [facility] for the next [facility] sponsored prescription drug collection event. , [phone], or [phone]; EXAM: [id number] CT/ABPEW ([id number]) PROCEDURE: Abdomen/Pelvis W INDICATIONS: 3 months post orchiectomy, cont pain, swelling CONTRAST: 100ml omni 300 TECHNIQUE: After the administration of intravenous contrast, a CT scan of the abdomen and pelvis was performed. Images were recorded and evaluated at appropriate window settings. Reformats: coronal and sagittal. For radiation dose reduction, the following was used: automated exposure control, adjustment of mA and/or kV according to patient size. COMPARISON: 03/30/2024. FINDINGS: Image quality: Diagnostic. Lower chest: Unremarkable. Liver: No solid mass. Gallbladder: No radiopaque stones or wall thickening. Biliary tree: No intrahepatic or extrahepatic dilation, accounting for age. Spleen: No splenomegaly. Pancreas: No pancreatic ductal dilation. Adrenals: No adrenal nodule. Kidneys and ureters: No hydronephrosis. No renal cystic lesion which requires follow up. Redemonstration of bilateral renal cysts. No solid mass. Stomach, bowel and peritoneum: No gastric or small bowel dilation. Circ umferential wall thickening of the descending and sigmoid colon with mild adjacent pericolonic stranding. Findings are most pronounced in the sigmoid colon. No evidence for free air or organized fluid collection.. No pathologic free fluid. Minimal periappendiceal stranding. The appendix is otherwise normal. Lymph nodes: No central or retroperitoneal adenopathy. Vessels: No infrarenal aortic aneurysm. Patent portal vein. Moderate atherosclerosis. PELVIS Reproductive organs: Unremarkable. Bladder: No abnormal wall thickening, accounting for underdistention. Pelvic lymph nodes: No pelvic adenopathy by size criteria. Bones: No aggressive osseous abnormality. Status post ORIF of the right femoral neck. No acute compression fractures of the imaged spine. Multilevel spondylosis. Other: Redemonstration of small-moderate sized left inguinal hernia containing fat and associated inflammatory changes. Decreased surrounding inflammatory stranding compared to the prior study. IMPRESSION: Colitis either infectious or inflammatory in etiology involving the descending and sigmoid colon. No evidence for perforation or abscess formation. Redemonstration of small-moderate sized left inguinal hernia containing fat and associated inflammatory changes. Moderate atherosclerosis. Other nonacute findings as above. Forms: PCP List Discharge Date/Time: 06/25/24 09:51
[2024-06-25 08:06] LABS: BASOPHILS % (AUTO) 0.2 %; EOSINOPHILS # (AUTO) 0.2 10^3/uL (0.0-0.7); EOSINOPHILS % (AUTO) 2.4 %; HCT - HEMATOCRIT 48.3 % (42.0-52.0); HGB - HEMOGLOBIN 15.6 g/dL (14.0-18.0); LYMPHOCYTES % (AUTO) 22.6 %; MEAN CORPUSCULAR HEMOGLOBIN 27.1 pg (27.0-31.0); MEAN CORPUSCULAR HGB CONC 32.3 g/dL (32.0-36.0); MONOCYTES # (AUTO) 0.8 10^3/uL (0.0-1.0); MONOCYTES % (AUTO) 8.4 %; NEUTROPHILS # (AUTO) 5.9 10^3/uL (1.5-6.6); NEUTROPHILS % (AUTO) 66.1 %; PLT - PLATELET COUNT 347 10^3/uL (130-450); RED BLOOD COUNT 5.75 10^6/uL (4.70-6.10); RED CELL DISTRIBUTION WIDTH 15.1 % (12.0-15.0); WHITE BLOOD COUNT 8.9 x10^3/uL (4.8-10.8)
[2024-06-25 08:20] LABS: ALBUMIN 3.6 g/dL (3.2-5.5); ALBUMIN/GLOBULIN RATIO 0.8 (1.0-2.2); ALKALINE PHOSPHATASE 121 IU/L (42-121); ALT ALANINE AMINOTRANSFERASE 17 IU/L (10-60); AST ASPARTATE AMINOTRANSFERASE 14 IU/L (10-42); BILIRUBIN,TOTAL 0.4 mg/dL (0.2-1.0); BUN - BLOOD UREA NITROGEN 12 mg/dL (6-20); CALCIUM 9.1 mg/dL (8.5-10.3); CARBON DIOXIDE - CO2 30 mmol/L (21-32); CHLORIDE 103 mmol/L (101-111); GFR - MDRD 76 (>89); GLUCOSE 95 mg/dL (74-104); LIPASE < 10 U/L (11-82); POTASSIUM 3.6 mmol/L (3.5-4.5); SODIUM 139 mmol/L (135-145)
[2024-06-25] MEDS ORDERED: iohexoL-300 100 ML VIAL ONE (08:31)
[2024-06-25] MEDS: iohexoL-300 100 ML VIAL IVP ONE (09:15)
--- NOTE | 2024-06-25 09:18 | CT Report ---
PROCEDURE: Abdomen/Pelvis W INDICATIONS: 3 months post orchiectomy, cont pain, swelling CONTRAST: 100ml omni 300 TECHNIQUE: After the administration of intravenous contrast, a CT scan of the abdomen and pelvis was performed. Images were recorded and evaluated at appropriate window settings. Reformats: coronal and sagittal. F or radiation dose reduction, the following was used: automated exposure control, adjustment of mA and /or kV according to patient size. COMPARISON: 03/30/2024. FINDINGS: Image quality: Diagnostic. Lower chest: Unremarkable. Liver: No solid mass. Gallbladder: No radiopaque stones or wall thickening. Biliary tree: No intrahepatic or extrahepatic dilation, accounting for age. Spleen: No splenomegaly. Pancreas: No pancreatic ductal dilation. Adrenals: No adrenal nodule. Kidneys and ureters: No hydronephrosis. No renal cystic lesion which requires follow up. Redemonstrat ion of bilateral renal cysts. No solid mass. Stomach, bowel and peritoneum: No gastric or small bowel dilation. Circumferential wall thickening of the descending and sigmoid colon with mild adjacent pericolonic stranding. Findings are most pronoun deborah in the sigmoid colon. No evidence for free air or organized fluid collection.. No pathologic free fluid. Minimal periappendiceal stranding. The appendix is otherwise normal. Lymph nodes: No central or retroperitoneal adenopathy. Vessels: No infrarenal aortic aneurysm. Patent portal vein. Moderate atherosclerosis. PELVIS Reproductive organs: Unremarkable. Bladder: No abnormal wall thickening, accounting for underdistention. Pelvic lymph nodes: No pelvic adenopathy by size criteria. Bones: No aggressive osseous abnormality. Status post ORIF of the right femoral neck. No acute compre ssion fractures of the imaged spine. Multilevel spondylosis. Other: Redemonstration of small-moderate sized left inguinal hernia containing fat and associated inf lammatory changes. Decreased surrounding inflammatory stranding compared to the prior study. IMPRESSION: Colitis either infectious or inflammatory in etiology involving the descending and sigmoid colon. No evidence for perforation or abscess formation. Redemonstration of small-moderate sized left inguinal hernia containing fat and associated inflammato ry changes. Moderate atherosclerosis. Other nonacute findings as above. Reviewed by: Javier De La Cruz MD on 06/25/2024 9:16 AM PDT Approved by: Javier De La Cruz MD on 06/25/2024 9:16 AM PDT Station ID: [id number]
[2024-06-25 09:55] VITALS: BP 172/101; O2SAT 95
== END 2024-06-25 09:51 | disposition home or self-care (01) ==
LOC: ED 07:17
DX: K52.9 Noninfective gastroenteritis and colitis, unspecified (principal); K40.90 Unilateral inguinal hernia, without obstruction or gangrene, not specified as recurrent; I10 Essential (primary) hypertension; E78.00 Pure hypercholesterolemia, unspecified; Z86.010 Personal history of colon polyps; Z87.19 Personal history of other diseases of the digestive system; Z87.442 Personal history of urinary calculi; N40.0 Benign prostatic hyperplasia without lower urinary tract symptoms; Z79.899 Other long term (current) drug therapy; F17.200 Nicotine dependence, unspecified, uncomplicated
CPT/HCPCS: 36415; 74177; 80053; 83690; 85025; 96374; 99284; Q9967

== ENCOUNTER 2024-07-01 14:55 | Outpatient (CLI) | payer MEDICAID ==
--- NOTE | 2024-07-04 11:08 | Ultrasound Report ---
PROCEDURE: Arterial Duplex Lwr Ext BL INDICATIONS: BILATERAL CLAUDIACTION TECHNIQUE: Color and pulse Doppler interrogation was performed of both lower extremity arterial systems, with im age documentation. ABIs were also obtained bilaterally. COMPARISON: None FINDINGS: Right lower extremity: Common femoral artery: 135 cm/sec, Deep femoral artery: 96 cm/sec, Proximal superficial femoral artery: Occluded Mid superficial femoral artery: 15 cm/sec, Distal superficial femoral artery: 17 cm/sec, . Popliteal artery: 23 cm/sec, Posterior tibial artery: 13 cm/sec, . Anterior tibial artery/dorsalis pedis: 15/10 cm/sec, Ugarte-scale imaging description: No significant atherosclerotic plaque. Spectral tracings show minimal inflow disease with minimal tardus parvus waveforms in the SFA, comple tely occluded SFA with triphasic waveforms in the profunda which is providing collateral flow distall y; minimal reconstitution of the distal SFA from collaterals and severe tardus parvus waveforms in th e popliteal, posterior tibial, anterior tibial and dorsalis pedis arteries. Most severe flow abnormal ity, with monophasic waveforms are seen in the dorsalis pedis. Left lower extremity: Common femoral artery: 113 cm/sec, Deep femoral artery: 146 cm/sec, Proximal superficial femoral artery: Occluded Mid superficial femoral artery: 11 cm/sec, Distal superficial femoral artery: Occluded , Popliteal artery: 93 cm/sec, Posterior tibial artery: 9 cm/sec, Anterior tibial artery/dorsalis pedis: 13/10 cm/sec, Ugarte-scale imaging description: No significant atherosclerotic plaque. Spectral tracings show triphasic waveforms in the common femoral artery, patent profunda, completely occluded SFA with distal reconstitution and severe tardus parvus waveforms in the popliteal, posterio r tibial, anterior tibial/dorsalis pedis. 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 Reviewed by: Santos Jacob MD on 07/04/2024 11:06 AM PDT Approved by: Santos Jacob MD on 07/04/2024 11:06 AM PDT Station ID: [id number]
== END 2024-07-01 14:56 | disposition home or self-care (01) ==
LOC: DI 14:55
PROVIDERS: ATTEND Physician Assistant
DX: I73.9 Peripheral vascular disease, unspecified (principal)
CPT/HCPCS: 93922; 93925